=== PATIENT | female | born 1945 | race Caucasian/White ===

== ENCOUNTER 2020-04-18 07:12 | Outpatient (CLI) | payer MEDICARE, SELFPAY ==
[2020-04-18 07:29] LABS: Basophils Absolute Auto 0.05 K/mm3 (0.00-0.10); Basophils Percent Auto 0.8 % (0.0-1.0); Eosinophils Absolute Auto 0.16 K/mm3 (0.02-0.50); Eosinophils Percent Auto 2.4 % (1.0-6.0); Hematocrit 38.6 % (35.0-42.0); Hemoglobin 12.5 g/dL (11.7-13.8); Immature Granulocyte Absolute 0.03 K/mm3 (0.00-0.00); Immature Granulocyte Percent A 0.5 % (0.0-0.0); Lymphocytes Absolute Auto 2.36 K/mm3 (1.10-4.50); Lymphocytes Percent Auto 35.9 % (18.0-42.0); Mean Corpuscular HGB Conc 32.4 g/dL (32.0-36.0); Mean Corpuscular Hemoglobin 31.4 pg (27.0-31.0); Mean Platelet Volume 8.6 fl (9.2-11.8); Monocytes Percent Auto 9.1 % (2.0-11.0); Neutrophils Absolute Auto 3.4 K/mm3 (1.7-7.2); Neutrophils Percent Auto 51.3 % (50.0-70.0); Platelet Count Result 339 K/mm3 (150-420); Red Blood Count 3.98 M/mm3 (4.20-5.40); Red Cell Distribution Width 11.8 % (11.6-14.4); White Blood Count 6.6 K/mm3 (4.8-10.8)
[2020-04-18 08:56] LABS: Alanine Aminotransferase 39 U/L (14-59); Albumin Level 3.7 g/dL (3.4-5.0); Alkaline Phosphatase 136 U/L (46-116); Anion Gap 7 mmol/L (8-16); Aspartate Amino Transferase 14 U/L (15-37); Bilirubin,Total 0.4 mg/dL (0.00-1.00); Blood Urea Nitrogen 21 mg/dL (7-18); Calcium 9.3 mg/dL (8.5-10.1); Carbon Dioxide 30 mmol/L (21-32); Chloride 103 mmol/L (98-108); Cholesterol 258 mg/dL (0-200); Estimated Glomerular Filt Rate > 60; Glucose 98 mg/dL (70-99); HDL Direct 68 mg/dL (40-60); LDL Cholesterol Calculated 167 mg/dL (<130); Osmolality Calculated 293 mOsm/kg (285-295); Potassium 4.2 mmol/L (3.5-5.1); Sodium 140 mmol/L (136-145); Thyroid Stimulating Hormone 1.88 uIU/mL (0.36-3.74); Triglycerides 115 mg/dL (0-150); Vitamin B12 586 pg/mL (193-986)
[2020-04-18 08:57] LABS: Folic Acid > 20.0 ng/mL (8.6->20)
== END 2020-04-18 07:13 | disposition home or self-care (01) ==
LOC: CHSLAB 07:15
PROVIDERS: PCP Family Medicine; Visit Provider Physician Assistant
DX: E03.9 Hypothyroidism, unspecified (principal); E66.9 Obesity, unspecified; E78.5 Hyperlipidemia, unspecified; M85.80 Other specified disorders of bone density and structure, unspecified site
CPT/HCPCS: 36415; 80053; 80061; 82607; 82746; 84443; 85025

== ENCOUNTER 2022-03-06 08:30 | Outpatient (CLI) | payer MEDICARE, SELFPAY ==
--- NOTE | ~2022-03-06 | MM_ITS ---
EXAMINATION: MM screening [facility] BI w jey HISTORY: Screening TECHNIQUE: Craniocaudal and mediolateral oblique 3-D tomosynthesis images were obtained and synthetic 2-D images were generated. CAD analysis was submitted and interpreted. COMPARISON: Comparison to multiple prior studies sequentially, with oldest reviewed study dated 05/25. BREAST PARENCHYMAL COMPOSITION: Breast composed of scattered areas of fibroglandular density FINDINGS: There is no evidence of suspicious mass, calcification, or architectural distortion to sugg est malignancy in either breast. There has been no suspicious interval change. IMPRESSION: 1. No mammographic evidence of malignancy. 2. Recommend routine screening mammography in one year. BI-RADS Category 1: Negative Reviewed, dictated and finalized at location A.
== END 2022-03-06 08:31 | disposition home or self-care (01) ==
PROVIDERS: PCP Physician Assistant; Visit Provider Physician Assistant
DX: Z12.31 Encounter for screening mammogram for malignant neoplasm of breast (principal)
CPT/HCPCS: 77063; 77067

== ENCOUNTER → 2022-12-01 11:45 | Outpatient (CLI) | payer MEDICARE, SELFPAY ==
--- NOTE | ~2022-12-01 | XR_ITS ---
Right foot Technique: AP, oblique, and lateral views were obtained. Clinical History: Pain Findings: No acute fracture or dislocation is seen. There is mild degenerative change at the first me tatarsophalangeal joint and first and second tarsometatarsal joints. Soft tissues are unremarkable. Impression: Mild degenerative changes, as above. Reviewed, dictated and finalized at location . Impression: Mild degenerative changes, as above.
--- NOTE | ~2022-12-01 | XR_ITS ---
Left foot Technique: AP, oblique, and lateral views were obtained. Clinical History: Pain Findings: No acute fracture or dislocation is seen. Problem mild degenerative change at the tarsometa tarsal reticulation. Soft tissues are unremarkable. Impression: Probable mild degenerative changes at the tarsometatarsal articulations. Reviewed, dictated and finalized at [facility]. Impression: Probable mild degenerative changes at the tarsometatarsal articulations.
== END ==
PROVIDERS: PCP Physician Assistant; Visit Provider Physician Assistant
DX: M79.671 Pain in right foot (principal); M79.672 Pain in left foot
CPT/HCPCS: 73630

== ENCOUNTER 2022-12-29 10:15 | Outpatient (RCR) | payer MEDICARE, SELFPAY ==
--- NOTE | 2022-12-01 17:17 | OPREHPOC ---
Outpatient Therapy Plan of Care This is a Multidisciplinary Plan of Care that may contain components documented by all disciplines (PT, OT, and ST.) PT Problem 1 PT Problem #1 Knowledge Deficit PT Goal 1 Goal Pt to be IND with issued HEP Target Visit 8 PT Problem 2 PT Problem #2 Impaired Range of Motion PT Goal 1 Goal Pt to increased passive hip rotation ROM to WNL Target Visit 8 PT Goal 2 Goal Pt to increase axtive ankle dorsiflexion with knees extended to 10 deg tyree. Target Visit 8 PT Problem 3 PT Problem #3 Pain PT Goal 1 Goal Pt to report tyree foot pain no greater than 3/10 in the last week Target Visit 8 PT Goal 2 Goal Pt to report 75% improvement in overall symptoms Target Visit 8 PT Problem 4 PT Problem #4 Impaired Gait PT Goal 1 Goal Pt to demonstrate a symetrical gait pattern Target Visit 8
--- NOTE | 2022-12-01 17:18 | PTOPEVAL1 ---
Assessment and note entered by Orly Peña, PT, DPT Evaluation Information Assessment Status Evaluation Diagnosis tyree foot pain Onset 1 year Subjective Information Pt reports intermittent foot pain for the last year or so. She states she has inflammatory issues and will get lots of pain in various places. She states she is on 800mg Ibuprofen for another issue which is helping with her feet. She has a history of L knee replacement. Pt states she relies on her shoes and cannot tolerate to go barefoot. Reported Pain Level Pain Score 0,0: Self Report Assessment PT Clinical Summary Aviva presents to therapy today for her initial evaluation with a diagnosis of tyree foot pain. She also has a history of a R PAVEL and a L TKA. Today she demonstrates decreased ankle ROM L>R, mildly flat arches, uneven gait regarding striking pattern, and decreased R hip motion. She will benefits from skilled therapy services to improve hip and ankle ROM, improve ankle and hip strength, gait training, functional mobility training in order to return to PLOF. Plan of Care Interventions Check Out for Orthotic/Pr,Electrical Stimulation, Gait Training,Hot Pack/Cold Pack,Manual Therapy, Neuro Re-education,Patient/Caregiver Educati, Therapeutic Activities,Therapeutic Exercise, Ultrasound PT Services Indicated Yes Treatment Frequency and 2x/wk for 8 visits Duration These treatments will address the objective and functional deficits as defined above. The patient will be advanced safely and appropriately in order for the patient to progress towards his/her prior level of function. Additional exercises will be introduced and as well as a comprehensive home exercise program upon discharge, if needed, ?to ensure carryover of functional gains achieved in the clinic. This treatment plan has been reviewed and agreement upon by the patient.
--- NOTE | 2022-12-10 08:15 | PCPTNOTE ---
Patient reports she cannot come in this date.
--- NOTE | 2022-12-16 11:27 | PCPTNOTE ---
Patient called to cancel due to being out of town.
--- NOTE | 2022-12-22 08:22 | PCPTNOTE ---
Patient called & cancelled scheduled appointment this date due to being around a COVID+ person.
--- NOTE | 2022-12-29 11:01 | PTOPDC ---
Assessment and note entered by Orly Peña, PT, DPT Evaluation Information Assessment Status Discharge Diagnosis tyree foot pain Onset 1 year Subjective Information Pt states her feet are a little bit better. She states she gets pain in the morning still and just has to walk it off. She states she has learned a lot of about her feet and their alignment. She states she has learned techniques to decrease her pain and that she has benefitted from therapy. Reported Pain Level Pain Score 0,1: Self Report Assessment PT Clinical Summary Aviva presents to therapy today for her initial evaluation with a diagnosis of tyree foot pain. She also has a history of a R PAVEL and a L TKA. Today she demonstrates improved ankle mobility compared to her first visit. She has improved her gait but still has a decreased heel strike R compared to L. She states she has learned a lot from therapy and would like to continue on her own. She will therefore be discharged at this time. Plan of Care PT Services Indicated No
== END 2023-01-08 08:30 | disposition home or self-care (01) ==
LOC: ANHGOSHPT 10:15
PROVIDERS: PCP Family Medicine; Visit Provider Physician Assistant
DX: M79.671 Pain in right foot (principal); M79.672 Pain in left foot
CPT/HCPCS: 97110; 97112; 97140; 97161; 97530

== ENCOUNTER 2023-03-30 14:10 | Outpatient (CLI) | payer MEDICARE, SELFPAY ==
[2023-03-30 19:12] LABS: Alanine Aminotransferase 33 U/L (6-35); Albumin Level 4.5 g/dL (3.5-5.1); Alkaline Phosphatase 93 U/L (38-126); Anion Gap 8 mmol/L (8-16); Aspartate Amino Transferase 39 U/L (14-36); Bilirubin,Total 0.6 mg/dL (0.2-1.3); Blood Urea Nitrogen 15 mg/dL (7-17); Calcium 9.8 mg/dL (8.4-10.2); Carbon Dioxide 26 mmol/L (22-30); Chloride 101 mmol/L (98-107); Estimated Glomerular Filt Rate > 60; Glucose 91 mg/dL (65-110); Potassium 4.5 mmol/L (3.4-5.0); Sodium 135 mmol/L (137-145)
[2023-03-30 19:57] LABS: Vitamin B12 > 1000.0 pg/mL (239-931); Vitamin D 25 Hydroxy 38.9 ng/mL
[2023-03-30 20:08] LABS: Thyroid Stimulating Hormone Reflex < 0.015 uIU/mL (0.465-4.68)
[2023-03-30 22:19] LABS: Free T4 Free Thyroxine Reflex 2.34 ng/dL (0.78-2.19)
[2023-03-30 23:18] LABS: Hemoglobin A1C 5.4 % (<5.7)
== END 2023-03-30 14:11 | disposition home or self-care (01) ==
LOC: ANHGOSHLAB 14:11
PROVIDERS: PCP Family Medicine; Visit Provider Family Medicine
DX: E03.9 Hypothyroidism, unspecified (principal); E78.5 Hyperlipidemia, unspecified; E53.8 Deficiency of other specified B group vitamins; R73.03 Prediabetes; Z79.899 Other long term (current) drug therapy; E55.9 Vitamin D deficiency, unspecified
CPT/HCPCS: 36415; 80053; 82306; 82607; 83036; 84439; 84443

== ENCOUNTER 2023-07-27 09:43 | Outpatient (CLI) | payer MEDICARE, SELFPAY ==
[2023-07-27 15:14] LABS: Thyroid Stimulating Hormone Reflex 0.052 uIU/mL (0.465-4.68)
[2023-07-27 15:58] LABS: Free T4 Free Thyroxine Reflex 1.43 ng/dL (0.78-2.19)
[2023-07-27 18:52] LABS: Total Triiodothyronine (T3) 1.04 NG/ML (0.97-1.69)
== END 2023-07-27 09:44 | disposition home or self-care (01) ==
LOC: ANHGOSHLAB 09:45
PROVIDERS: PCP Family Medicine; Visit Provider Family Medicine
DX: E03.9 Hypothyroidism, unspecified (principal)
CPT/HCPCS: 36415; 84439; 84443; 84480

== ENCOUNTER 2023-08-17 13:18 | Outpatient (CLI) | payer MEDICARE, SELFPAY ==
--- NOTE | ~2023-08-17 | MM_ITS ---
EXAMINATION: MM screening [facility] BI w jey HISTORY: Screening TECHNIQUE: Craniocaudal and mediolateral oblique 3-D tomosynthesis images were obtained and synthetic 2-D images were generated. CAD analysis was submitted and interpreted. COMPARISON: Comparison to multiple prior studies sequentially, with oldest reviewed study dated 03/04. BREAST PARENCHYMAL COMPOSITION: There are scattered areas of fibroglandular density. FINDINGS: There is no evidence of suspicious mass, calcification, or architectural distortion to sugg est malignancy in either breast. There has been no suspicious interval change. IMPRESSION: 1. No mammographic evidence of malignancy. 2. Recommend routine screening mammography in one year. BI-RADS Category 1: Negative Reviewed, dictated and finalized at location B.
--- NOTE | ~2023-08-17 | DEXA_ITS ---
? Bone Density Report? Name:? ASH MARAVILLA Patient ID:??? [id number] Age:? 78 Sex:? Female Ethnicity:? White Date of : 1945 Indication: postmenopausal; screening for osteoporosis; height loss; Referring Provider: JO LOMELI Study: Bone densitometry was performed. Exam Date: August 17, 2023 Accession number: [id number] Bone Density: Region? BMD??? T-score? Z-score?? Classification AP Spine(L2, L3, L4)? 1.022?? -0.5?2.1? Normal Femoral Neck (Left)? 0.822?? -0.2? 1.9? Normal Total Hip (Left)? 0.885?? -0.5? 1.4? Normal World Health Organization criteria for BMD impression classify patients as: Normal (T-score at or above -1.0), Osteopenia (T-score between -1.0 and -2.5), or Osteoporosis (T-score at or below -2.5). 10-year Fracture Risk: FRAX not reported because: ? All T-scores for Spine Total, Hip Total, Femoral Neck at or above -1.0 Clinical Information Provided by Patient: Has used the following medications: Vitamin D Patient maximum height was 66 Menopause Age: 52 Drinks caffeinated beverages Onset of menses at age 15 Number of children 3 Impression: The patient has normal bone mass. Discussion: LOW RISK OF FRACTURE; BONE DENSITY IS WELL ABOVE THE MINIMUM DESIRABLE LEVEL AND ABOVE AVERAGE FOR AGE AND SEX AT ALL SKELETAL SITES TESTED. This person's bone density is above expected limits for age and sex. This is rarely clinically significant, but should be pursued if there are significant musculoskeletal complaints. The patient should follow a healthful lifestyle (good nutrition with adequate calcium and vitamin D, and appropriate weight- bearing exercise). Follow-Up: Consider repeating this study in 5 years or sooner if there is some new clinical indication. Reported by: Dr. Eligio Coronado on 08/18/2023 9:38:00 AM. ELISHA
== END 2023-08-17 13:19 | disposition home or self-care (01) ==
LOC: CHSIMG 13:19
PROVIDERS: PCP Family Medicine; Visit Provider Family Medicine
DX: Z12.31 Encounter for screening mammogram for malignant neoplasm of breast (principal); Z78.0 Asymptomatic menopausal state
CPT/HCPCS: 77063; 77067; 77080

== ENCOUNTER 2023-09-16 13:35 | Outpatient (CLI) | payer MEDICARE, SELFPAY ==
--- NOTE | 2023-09-16 14:10 | NEURO_ITS ---
Impression: # Complains of numbness of both hands. # Bilateral Carpal Tunnel Syndrome, left more than right. # Right ulnar neuropathy across the elbow. # Needle/EMG exam mildly (abnormal) neurogenic. Nerve Conduction Studies Anti Sensory Summary Table Stim Site NR Peak (ms) P-T Amp (?V) Site1 Site2 Delta-P (ms) Dist (cm) Matt (m/s) Left Median Anti Sensory (2-3nd Digit) Wrist 5.8 45.9 Wrist 2-3nd Digit 5.8 14.0 24 Wrist 5.7 9.8 Wrist 2-3nd Digit 5.8 14.0 24 Right Median Anti Sensory (2-3nd Digit) Wrist 5.2 15.7 Wrist 2-3nd Digit 5.2 14.0 27 Wrist 5.4 17.1 Wrist 2-3nd Digit 5.2 14.0 27 Left Radial Anti Sensory (Base 1st Digit) Wrist 2.9 25.3 Wrist Base 1st Digit 2.9 0.0 Right Radial Anti Sensory (Base 1st Digit) Wrist 2.6 10.3 Wrist Base 1st Digit 2.6 0.0 Left Ulnar Anti Sensory (5th Digit) Wrist 2.8 67.5 Wrist 5th Digit 2.8 14.0 50 Right Ulnar Anti Sensory (5th Digit) Wrist 2.7 33.7 Wrist 5th Digit 2.7 14.0 52 Motor Summary Table Stim Site NR Onset (ms) O-P Amp (mV) Site1 Site2 Delta-0 (ms) Dist (cm) Matt (m/s) Left Median Motor (Abd Poll Brev) Wrist 5.1 2.2 Elbow Wrist 5.2 30.0 58 Elbow 10.3 2.4 Right Median Motor (Abd Poll Brev) Wrist 4.1 3.4 Elbow Wrist 6.9 30.0 43 Elbow 11.0 2.2 Left Ulnar Motor (Abd Dig Minimi) Wrist 2.7 7.5 A Elbow Wrist 5.4 31.0 57 A Elbow 8.1 6.0 Right Ulnar Motor (Abd Dig Minimi) Wrist 2.1 6.6 A Elbow Wrist 7.0 32.0 46 A Elbow 9.1 6.5 B Elbow Wrist 4.4 22.0 50 B Elbow 6.5 6.6 F Wave Studies NR F-Lat (ms) L-R F-Lat (ms) Left Median (Mrkrs) (Abd Poll Brev) 30.58 0.99 Right Median (Mrkrs) (Abd Poll Brev) 29.59 0.99 Left Ulnar (Mrkrs) (Abd Dig Min) 28.38 0.16 Right Ulnar (Mrkrs) (Abd Dig Min) 28.54 0.16 EMG Side Muscle Nerve Root Ins Act Fibs Amp Dur Recrt Comment Right 1stDorInt Ulnar C8-T1 Nml Nml Incr >12ms +2 Right Ext Indicis Radial (Post Int) C7-8 Nml Nml Nml Nml Nml Right Ext Digitorum Radial (Post Int) C7-8 Nml Nml Nml Nml Nml Right BrachioRad Radial C5-6 Nml Nml Nml Nml Nml Right PronatorTeres Median C6-7 Nml Nml Nml Nml Nml Right Abd Poll Brev Median C8-T1 Nml Nml Incr >12ms +1 Right ABD Dig Min Ulnar C8-T1 Nml Nml Incr >12ms +1 Left 1stDorInt Ulnar C8-T1 Nml Nml Nml Nml Nml Left Ext Indicis Radial (Post Int) C7-8 Nml Nml Nml Nml Nml Left Ext Digitorum Radial (Post Int) C7-8 Nml Nml Nml Nml Nml Left BrachioRad Radial C5-6 Nml Nml Nml Nml Nml Left PronatorTeres Median C6-7 Nml Nml Nml Nml Nml Left Abd Poll Brev Median C8-T1 Nml Nml Incr >12ms +1 Left ABD Dig Min Ulnar C8-T1 Nml Nml Nml Nml Nml MTDD
== END 2023-09-16 13:36 | disposition home or self-care (01) ==
LOC: ANHNEURO 13:35
PROVIDERS: PCP Family Medicine; Visit Provider Family Medicine
DX: R20.0 Anesthesia of skin (principal); R20.2 Paresthesia of skin; G56.03 Carpal tunnel syndrome, bilateral upper limbs; G56.21 Lesion of ulnar nerve, right upper limb
CPT/HCPCS: 95886; 95911

== ENCOUNTER 2024-07-13 08:03 | Outpatient (CLI) | payer MEDICARE, SELFPAY ==
--- OUTSIDE RECORDS SUMMARY | 2024-07-13 08:10 | XMS_ITS | Clinical Summary ---
Author Organization [facility] Address [address] [place] [address] Phone Care Team Providers Care Steel Hanger Name Role Phone Pato Staples MD Primary Care Provider [phone] Allergies No known active allergies Medications aspirin (JERICHO CHEWABLE) 81 mg Tablet, Chewable Take 81 mg by mouth daily. 12/24/2019 Active valACYclovir (VALTREX) 1 gram tablet 12/12/2020 Active atorvastatin (LIPITOR) 20 mg tablet 12/14/2020 Active famotidine (PEPCID) 40 mg tablet 12/14/2020 Active ALPRAZolam (XANAX) 0.5 mg tablet Take 0.5 mg by mouth. 09/27/2019 Active levothyroxine 137 mcg tablet 11/25/2020 Acti ve diclofenac sodium (VOLTAREN) 75 mg Tablet, Delayed Release (E.C.) TAKE 1 TABLET BY MOUTH TWICE A DAY NEEDED FOR PAIN 12/24/2022 Active Phentermine (Adipex-P) 37.5 mg CapsuleIndicati ons:History of obesity,Overwei ght (BMI 25.0-29.9) Take 1 Tablet by mouth daily. 30 Capsule 5 02/13/2023 Active metFORMIN (GLUCOPHAGE XR) 500 mg Extended Release 24 hour tablet Take 2 Tablets (1,000 mg) by mouth 2 times daily with meals. 360 Tablet 3 03/19/2023 Active Active Problems Problem Noted Date Diagnosed Date Pre-diabetes 03/11/2019 Overweight (BMI 25.0-29.9) 10/23/2017 History of obesity 10/23/2017 Elevated C-reactive protein (CRP) 12/23/2016 Impaired fasting glucose 12/23/2016 Hyperlipidemia 12/23/2016 Family history of breast cancer in mother 2016 Family hx of ovarian malignancy 12/23/2016 Resolved Problems Problem Noted Date Diagnosed Date Resolved Date Obesity (BMI 30.0-34.9) 12/23/201610/03 Encounters Date Type Department Care Team Description 05/31/2024 External Device Data ST[facility] ABSTRACTION Provider, Abstract from Last 3 Months Immunizations Immunization Administration Dates Next Due Influenza Vaccine High Dose 65+ Yrs IM 7 Family History Medical History Relation Name Comments Cancer Brother lung Healthy Daughter Heart Disease Father Breast Cancer Mother Cancer Sister 1 liver Ovarian Cancer Sister 2 Healthy Son 1 Healthy Son 2 Relation Name Status Comments Brother Daughter Father Mother Sister 1 Sister 2 Son 1 Son 2 Social History Tobacco Use Types Packs/Day Years Used Date Smoking Tobacco: Never Smokeless Tobacco: Never Alcohol Use Standard Drinks/Week Comments Yes 0 (1 standard drink = 0.6 oz pur e alcohol) daily Comments No Sex and Gender Information Value Date Recorded Sex Assigned at Not on file Legal Sex Female 1:11 PM CDT Gender Identity Not on file Sexual Orientation Not on file Last Filed Vital Signs Vital Sign Reading Time Taken Comments Blood Pressure 124/80 02/13/2023 12:20 PM CDT Pulse 71 02/13/2023 12:20 PM CDT Temperature 36.8 C (98.2 F) 12/23/2016 10:13 AM CDT Respiratory Rate 16 12/23/2016 10:13 AM CDT Oxygen Saturation 97% 02/13/2023 12:20 PM CDT Inhaled Oxygen Concentration - - Weight 78.9 kg (174 lb) 02/13/2023 12:20 PM CDT Height 165.1 cm (5' 5 ) 02/13/2023 12:20 PM CDT Body Mass Index 28.96 02/13/2023 12:20 PM CDT Plan of Treatment Health Maintenance Due Date Last Done Comments DTAP/TDAP/TD VACCINES (1 - Tdap) 1966 PNEUMOCOCCAL VACCINE 50+ YEA RS (1 of 1 - PCV) 1997 ZOSTER VACCINE (1 of 2) 1997 OSTEOPOROSIS SCREENING 2012 RSV VACCINE (60+ or ) (1 - 1-dose 75+ series) 2022 INFLUENZA VACCINE (#1) 2023 06/18/2021, 2016 Insurance [employer] PPO MCR Care Teams Steel Hanger Relationship Specialty Start Date End Date Pato Staples MD [address] [place] [address] PCP - General Family Practice 10/23/17
--- OUTSIDE RECORDS SUMMARY | 2024-07-13 08:10 | XMS_ITS | Clinical Summary ---
Author Organization [facility] Address Formerly [facility] [place] [address] Care Team Providers Care Metallography Teacher Name Role Phone Pato Staples MD Primary Care Provider [phone] Allergies No known active allergies Medications levothyroxine 137 MCG tablet Take 137 mcg by mouth every morning. Active metFORMIN ER, MOD, 500 MG TABLET SR 24 HR 24 hr tablet Take 1,000 mg by mouth 2 (two) times daily. 11/18/2019 Active ALPRAZolam 0.5 MG tablet Take 0.5 mg by mouth as needed. 09/27/2019 Active aspirin 81 MG chewable tablet Chew 1 tablet (81 mg total) by mouth daily. 30 tablet 12/24/2019 Active nitroglycerin 0.[address] 1 tablet (0.4 mg total) under the tongue every 5 (five) minutes as needed for Chest Pain. 90 tablet 12/23/2019 Active Active Problems Problem Noted Date Diagnosed Date Substernal chest pain relieved by rest 0 Anxiety 12/22/2019 Pre-diabetes 03/11/2019 History of obesity 10/23/2017 Overweight with body mass index (BMI) 25.0-29.9 10/23/2017 Hyperlipidemia 12/23/2016 Family History Medical History Relation Comments Heart Disease Father Cancer Mother breast cancer Cancer Sister 1 unknown Cancer Sister 2 unknown Relation Status Comments Father Mother Sister 1 Sister 2 Social History Tobacco Use Types Packs/Day Years Used Date Smoking Tobacco: Never Smokeless Tobacco: Never Alcohol Use Standard Drinks/Week Comments Yes 3.3 (1 standard drink = 0.6 oz p ure alcohol) daily Comments Unknown Sex and Gender Information Value Date Recorded Sex Assigned at Not on file Legal Sex Female 12:31 PM CDT Gender Identity Not on file Sexual Orientation Not on file Last Filed Vital Signs Vital Sign Reading Time Taken Comments Blood Pressure 137/76 12/23/2019 8:29 AM CDT Pulse 72 12/23/2019 8:29 AM CDT Temperature 36.6 C (97.9 F) 12/23/2019 8:29 AM CDT Respiratory Rate 18 12/23/2019 8:29 AM CDT Oxygen Saturation 98% 12/23/2019 8:29 AM CDT Inhaled Oxygen Concentration - - Weight 77.6 kg (171 lb) 12/23/2019 4:51 AM CDT Height 165.1 cm (5' 5 ) 12/22/2019 3:00 PM CDT Body Mass Index 28.46 12/22/2019 3:00 PM CDT Plan of Treatment Health Maintenance Due Date Last Done Comments Hepatitis C 1965 DTaP, Tdap and Td Vaccines ( 1 - Tdap) 1966 Zoster Vaccines (1 of 2) 1997 Annual Medicare Wellness Visit 2012 Dexa Scan (General) 2012 Pneumococcal Vaccine: 65+ Ye ars (1 of 1 - PCV) 2012 RSV Immunization or 60+ Years (1 - 1-dose 75+ series) 2022 COVID-19 Vaccine ( - 2023-2 5 season) 2024 Influenza Adult (#1) 2024 Meningococcal B Vaccine Aged Out No l onger eligible based on patient's age to complete this topic Meningococcal Vaccine Aged Out No calos rosetta eligible based on patient's age to complete this topic RSV Immunizations Under 20 Months Aged Out No longer eligible based on patient's age to complete this topic [place] [address] [place] [address] GROUP MEDICARE Advance Directives * Full Code (Latest Code Status on File) Date Activated Date Inactivated Comments 12/22/2019 2:59 PM 12/23/2019 3:03 PM Care Teams Metallography Teacher Relationship Specialty Start Date End Date Pato Staples MD [address] [place] [address] PCP - General FAMILY PRACTICE 12/22/19
--- OUTSIDE RECORDS SUMMARY | 2024-07-13 08:10 | XMS_ITS | Clinical Summary ---
Author Organization [facility] Address [address] [place] [address] Care Team Providers Care Weed Burner Name Role Phone Unavailable Primary Care Provider Unavailabl e Social History Tobacco Use Types Packs/Day Years Used Date Smoking Tobacco: Never Assessed Comments Unknown Sex and Gender Information Value Date Recorded Sex Assigned at Not on file Legal Sex Female 9:54 AM TEMPERING KILN TENDER Gender Identity Not on file Sexual Orientation Not on file Plan of Treatment Health Maintenance Due Date Last Done Comments DEXA Bone Density 1945 Hepatitis C Virus (HCV) Screening 1945 TdaP Immunization 1945 Zoster Immunization (1 of 2) 1997 Pneumococcal Immunization (5 0+ years) (2 of 2 - PCV) 10/26/2019 10/25/2018 Respiratory Syncytial Virus (RSV) Immunization (Adult) (1 - 1-dose 75+ series) 2022 Influenza Immunization (#1) 2024 03/27/2020 SARS-COV-2 Immunization ( - season) 2024 Pneumococcal Immunization Combined Discontinued 10/25/2018 Hepatitis B Immunization Aged Out No longer eligible based on patient's age to complete this topic Meningococcal Immunization (ACWY) Aged Out No longer eligible based on patient's age to complete this topic Rotavirus Immunization Aged Out No lo nger eligible based on patient's age to complete this topic
--- OUTSIDE RECORDS SUMMARY | 2024-07-13 08:10 | XMS_ITS | Clinical Summary ---
Author Organization [facility] [address] [facility] Address [address] [place] [address] Care Team Providers Care Printed Circuit Boards Inspector Name Role Phone Divine Castillo MD Primary Care Provider Allergies No known active allergies Medications ALPRAZolam (XANAX) 0.5 mg tablet Take 1 tablet (0.5 mg total) by mouth 09/27/2019 Active atorvastatin (LIPITOR) 20 mg tablet 12/29/2021 Active famotidine (PEPCID) 40 mg tablet Take 1 tablet (40 mg total) by mouth daily 03/19/2022 Active metFORMIN (GLUMETZA) 500 mg 24 hr tablet Take 2 tablets (1,000 mg total) by mouth 2 (two) times a day 11/18/[address] (VOLTAREN) 75 mg EC tablet 75 MG ORALLY TWICE A DAY NEEDED FOR PAIN Active levothyroxine (SYNTHROID) 112 mcg tablet Take 1 tablet (112 mcg total) by mouth daily 04/11/2024 Active losartan (COZAAR) 100 mg tablet Take 1 tablet (100 mg total) by mouth daily 01/15/2024 Active Active Problems Problem Noted Date Diagnosed Date Primary osteoarthritis of right knee 05/31/2024 Encounters Date Type Department Care Team Description 07/11/2024 8:15 AM CDT Ancillary Procedure [facility] [address] [facility] [address] [place] [address] Arrived 07/11/2024 8:15 AM CDT Office Visit [facility] [address] [phone] Martínez Guadalupe MD Primary osteoarthritis of right knee (Primary Dx); Right knee pain, unspecified chronicity 06/02/2024 1:15 PM PRESS OPERATOR AUTOMATIC Clinical Support [address] [address] Martínez Guadlaupe MD Primary osteoarthritis of right knee (Primary Dx) 05/30/[address] [address] Martínez Guadalupe MD 04/22/2024 10:30 AM PRESS OPERATOR AUTOMATIC Clinical Support [address] [address] Radha Cruz NP Right knee pain, unspecified chronicity (Primary Dx); Primary osteoarthritis of right knee; Risk for falls; Altered gait from Last 3 Months Immunizations Immunization Administration Dates Next Due Influenza, Trivalent, High D ose, Split, Preservative Free, Intramuscular 02/04/2017 Social History Tobacco Use Types Packs/Day Years Used Date Smoking Tobacco: Never Smokeless Tobacco: Never Tobacco Cessation:Counseling Given: Not Answered Comments Unknown Sex and Gender Information Value Date Recorded Sex Assigned at Not on file Legal Sex Female 9:12 PM PRESS OPERATOR AUTOMATIC Gender Identity Not on file Sexual Orientation Not on file Obstetrics History Last Filed Vital Signs Vital Sign Reading Time Taken Comments Blood Pressure 121/69 02/04/2017 7:59 AM CDT Pulse 80 02/04/2017 7:59 AM CDT Temperature - - Respiratory Rate - - Oxygen Saturation - - Inhaled Oxygen Concentration - - Weight 77.1 kg (170 lb) 07/11/2024 8:07 AM CDT Height 165.1 cm (5' 5 ) 07/11/2024 8:07 AM CDT Body Mass Index 28.29 07/11/2024 8:07 AM CDT Plan of Treatment Health Maintenance Due Date Last Done Comments Depression Screening 1945 Fall Risk Assessment 1945 Hepatitis C Screening 1945 Osteoporosis Screening-Bone Density Scan 1945 DTaP/Tdap/Td Vaccine (1 - Tdap) 1958 Hepatitis B Screening 1965 Zoster Vaccine (1 of 2) 1997 Well Visit 65+ 2012 Pneumococcal vaccine 65+ (2 of 2 - PCV) 10/26/2019 10/25/2018 Covid-19 Vaccine (2 - season) 2024 Influenza Vaccine (#1) 2024 1, 03/27/2020, 02/04/2017 Procedures Procedure Name Priority Date/Time Associated Diagnosis Comments XR KNEE RIGHT 4 OR MORE VIEWS Schedule Routine, Read Routine (OP Routine) 07/11/2024 8:19 AM CDT Right knee pain, unspecified chronicity [place] ARTHROCENTESIS ASPIR&/INJ MAJOR JT/BURSA W/O US Routine 06/02/2024 1:15 PM PRESS OPERATOR AUTOMATIC Primary osteoarthritis of right knee [place] ARTHROCENTESIS ASPIR&/INJ MAJOR JT/BURSA W/O US Routine 04/22/2024 10:30 AM PRESS OPERATOR AUTOMATIC Right knee pain, unspecified chronicity Primary osteoarthritis of right knee Risk for falls Altered gait from Last 3 Months Results * XR Knee Right 4+ View (07/11/2024 8:19 AM CDT) Anatomical Region Laterality Modality Lower Extremities, Knee Right Computed Radiography 07/11/2024 8:22 AM CDT Impressions 07/11/2024 8:22 AM CDT FINDINGS/IMPRESSION: Osseous demineralization. Tricompartmental degenerative changes in the right knee seen with medial compartment joint space narrowing with bone on bone apposition and remodeling, osteophytes, and advanced patellofemoral joint arthrosis. Small to moderate right knee effusion. Small superior patellar enthesophyte. No acute fracture or dislocation. Alignment is otherwise intact. Mild prepatellar and infrapatellar soft tissue swelling. Mild vascular calcifications. Postoperative changes of left knee arthroplasty. The hardware is intact and in expected alignment. Electronically signed by: Quinton Valera M.D. Narrative 07/11/2024 8:22 AM CDT EXAM: XR KNEE RIGHT 4 OR MORE VIEWS INDICATION: Pain COMPARISON: Radiograph 08/10/2023 Procedure Note Quinton Valera MD - 07/11/2024 EXAM: XR KNEE RIGHT 4 OR MORE VIEWS INDICATION: Pain COMPARISON: Radiograph 08/10/2023 IMPRESSION: FINDINGS/IMPRESSION: Osseous demineralization. Tricompartmental degenerative changes in the right knee seen with medial compartment joint space narrowing with bone on bone apposition and remodeling, osteophytes, and advanced patellofemoral joint arthrosis. Small to moderate right knee effusion. Small superior patellar enthesophyte. No acute fracture or dislocation. Alignment is otherwise intact. Mild prepatellar and infrapatellar soft tissue swelling. Mild vascular calcifications. Postoperative changes of left knee arthroplasty. The hardware is intact and in expected alignment. Electronically signed by: Quinton Valera M.D. Martínez Guadalupe MD IMG XR PROCEDURES Final Resu lt * [place] ARTHROCENTESIS ASPIR&/INJ MAJOR JT/BURSA W/O US (06/02/2024 1:15 PM PRESS OPERATOR AUTOMATIC) Narrative Martínez Guadalupe MD - 06/02/2024 1:15 PM PRESS OPERATOR AUTOMATIC Martínez Guadalupe MD 06/02/2024 1:18 PM Large Joint (Hip, Knee, Shoulder) Injection: R knee Performed by: Martínez Guadalupe MD Authorized by: Martínez Guadalupe MD Large Joint Injection/Aspiration: Consent Given by: Patient Timeout: prior to procedure the correct patient, procedure, and site was verified Verbal consent obtained: Yes Supporting Documentation: Indications: Pain Procedure Details: Location: Knee Site: R knee Prep: patient was prepped using a clean technique Needle Size: 21 G Approach: Anteromedial Ultrasound guided: No Medications: 40 mg methylPREDNISolone acetate 40 mg/mL Patient tolerance: Patient tolerated the procedure well with no immediate complications us Martínez Guadalupe MD IN CLINIC/BEDSIDE ORDERABLES Final Result * [place] ARTHROCENTESIS ASPIR&/INJ MAJOR JT/BURSA W/O US (04/22/2024 10:30 AM PRESS OPERATOR AUTOMATIC) Radha Carnes NP - 04/22/2024 10:30 AM PRESS OPERATOR AUTOMATIC Radha Cruz NP 04/22/2024 1:03 PM Large Joint (Hip, Knee, Shoulder) Injection: R knee Performed by: Radha Cruz NP Authorized by: Radha Cruz NP Large Joint Injection/Aspiration: Consent Given by: Patient Timeout: prior to procedure the correct patient, procedure, and site was verified Verbal consent obtained: Yes Supporting Documentation: Indications: Joint swelling and pain Procedure Details: Location: Knee Site: R knee Prep: patient was prepped using a clean technique Needle Size: 21 G Approach: Anteromedial Ultrasound guided: No Fluroscopic guidance: No Medications: 60 mg hyaluronate sodium, stabilized 60 mg/3 mL; 1 mL lidocaine 10 mg/mL (1 %) Patient tolerance: Patient tolerated the procedure well with no immediate complications Radha Cruz NP IN CLINIC/BEDSIDE ORDER CHUCKY Final Result from Last 3 Months Insurance [employer] MED[employer] Care Teams Printed Circuit Boards Inspector Relationship Specialty Start Date End Date Divine Castillo MD [address] [facility] [address] [place] [address] PCP - General Family Practice 04/22/24
--- OUTSIDE RECORDS SUMMARY | 2024-07-13 08:10 | XMS_ITS | Referral Summary ---
Author Organization [address] Address [address] [place] [phone] Care Team Providers Care Boxing Promoter Name Role Phone Divine Castillo MD Primary Care Provider Encounters Date Type Department Care Team Description 07/11/2024 8:15 AM CDT Ancillary Procedure [facility] [address] [phone] Arrived 07/11/2024 8:15 AM CDT Office Visit [address] [phone] Martínez Guadalupe MD Primary osteoarthritis of right knee (Primary Dx); Right knee pain, unspecified chronicity 06/02/2024 1:15 PM STEAM SETTER Clinical Support [address] [phone] Martínez Guadalupe MD Primary osteoarthritis of right knee (Primary Dx) 05/30/[address] [address] Martínez Guadalupe MD 04/22/2024 10:30 AM STEAM SETTER Clinical Support [address] [phone] Radha Cruz NP Right knee pain, unspecified chronicity (Primary Dx); Primary osteoarthritis of right knee; Risk for falls; Altered gait from Last 3 Months Allergies No known active allergies Medications ALPRAZolam [...] Date Primary osteoarthritis of right knee 05/31/2024 Immunizations Immunization Administration Dates Next Due Influenza, Trivalent, High D ose, Split, Preservative Free, Intramuscular 02/04/2017 Social History Tobacco Use Types Packs/Day Years Used Date Smoking Tobacco: Never Smokeless Tobacco: Never Tobacco Cessation:Counseling Given: Not Answered Comments Unknown Sex and Gender Information Value Date Recorded Sex Assigned at Not on file Legal Sex Female 9:12 PM STEAM SETTER Gender Identity Not on file Sexual Orientation [...] 07/11/2024 8:07 AM CDT Plan of Treatment Not on file Procedures Procedure Name Priority Date/Time Associated Diagnosis Comments XR KNEE RIGHT 4 OR MORE VIEWS Schedule Routine, Read Routine (OP Routine) 07/11/2024 8:19 AM CDT Right knee pain, unspecified chronicity [place] ARTHROCENTESIS ASPIR&/INJ MAJOR JT/BURSA W/O US Routine 06/02/2024 1:15 PM STEAM SETTER Primary osteoarthritis of right knee [place] ARTHROCENTESIS ASPIR&/INJ MAJOR JT/BURSA W/O US Routine 04/22/2024 10:30 AM STEAM SETTER Right knee pain, unspecified chronicity Primary osteoarthritis [...] IMG XR PROCEDURES Final Resu lt * [place] ARTHROCENTESIS ASPIR&/INJ MAJOR JT/BURSA W/O US (06/02/2024 1:15 PM STEAM SETTER) Martínez Loredo MD - 06/02/2024 1:15 PM STEAM SETTER Martínez Guadalupe MD 06/02/2024 1:18 PM Large [...] the procedure well with no immediate complications Martínez Guadalupe MD IN CLINIC/BEDSIDE ORDERABLES Final Result * [place] ARTHROCENTESIS ASPIR&/INJ MAJOR JT/BURSA W/O US (04/22/2024 10:30 AM STEAM SETTER) Narrative Radha Cruz NP - 04/22/2024 10:30 AM STEAM SETTER Radha Cruz NP 04/22/2024 1:03 PM Large [...] Final Result from Last 3 Months Insurance [facility] MEDICARE [employer] MEDICARE Care Teams Boxing Promoter Relationship Specialty Start Date End Date Divine Castillo MD [address] [facility] [address] [place], [place] [id number] PCP - General Family Practice 04/22/24
[2024-07-13 13:32] LABS: Hemoglobin A1C 5.7 % (<5.7)
[2024-07-13 14:16] LABS: Vitamin D 25 Hydroxy 43.5 ng/mL
[2024-07-13 14:45] LABS: Creatinine Urine 71.2 mg/dL
[2024-07-13 14:48] LABS: MALB Creatinine Ratio 33.8 mg/g (0-30); Microalbumin Urine Random 24.1 mg/L (0-16.7)
[2024-07-13 15:07] LABS: Free T4 Free Thyroxine Reflex 1.35 ng/dL (0.78-2.19)
[2024-07-13 15:52] LABS: Alanine Aminotransferase 106 U/L (6-35); Albumin Level 4.1 g/dL (3.5-5.1); Alkaline Phosphatase 114 U/L (38-126); Anion Gap 7 mmol/L (4-12); Aspartate Amino Transferase 63 U/L (14-36); Bilirubin,Total 0.4 mg/dL (0.2-1.3); Blood Urea Nitrogen 29 mg/dL (7-17); Calcium 9.4 mg/dL (8.4-10.2); Carbon Dioxide 29 mmol/L (22-30); Chloride 103 mmol/L (98-107); Estimated Glomerular Filt Rate 54; Glucose 91 mg/dL (65-110); Potassium 4.4 mmol/L (3.4-5.0); Sodium 139 mmol/L (137-145)
== END 2024-07-13 08:04 | disposition home or self-care (01) ==
PROVIDERS: PCP Family Medicine; Visit Provider Family Medicine
DX: E03.9 Hypothyroidism, unspecified (principal); E55.9 Vitamin D deficiency, unspecified; E53.8 Deficiency of other specified B group vitamins; E11.9 Type 2 diabetes mellitus without complications; I10 Essential (primary) hypertension; E78.5 Hyperlipidemia, unspecified
CPT/HCPCS: 36415; 80053; 82043; 82306; 82607; 83036; 84439; 84443; 84480

== ENCOUNTER 2024-08-29 12:23 | Outpatient (CLI) | payer MEDICARE, SELFPAY ==
--- NOTE | 2024-08-29 13:06 | ECG_ITS ---
Test Date: 2024-08-29 13:22:14 Measurements Intervals Orgas Rate: 74 P: 55 TX: 162 QRS: 23 QRSD: 92 T: 54 QT: 368 QTc: 411 Interpretive Statements SINUS RHYTHM WITH SINUS ARRHYTHMIA BORDERLINE ST ABNORMALITY- ANTEROLAT/INF LEADS BASELINE ARTIFACT- V6 BORDERLINE ECG No previous ECG available for comparison Electronically Signed On 08-29-2024 13:48:50 CDT by William Bonilla D.O.
[2024-08-29 13:12] LABS: Basophils Absolute Auto 0.1 K/mm3 (0.0-0.1); Basophils Percent Auto 0.9 % (0.2-1.2); Eosinophils Absolute Auto 0.3 K/mm3 (0-0.3); Eosinophils Percent Auto 3.6 % (0-4.4); Hematocrit 33.4 % (37.0-47.0); Hemoglobin 10.5 g/dL (12.0-15.0); Immature Granulocyte Absolute 0.03 K/mm3 (0.00-0.031); Immature Granulocyte Percent A 0.4 % (0-0.5); Lymphocytes Percent Auto 36.9 % (18.3-44.2); Mean Corpuscular HGB Conc 31.4 g/dl (32-36); Mean Corpuscular Hemoglobin 32.1 pg (26-34); Mean Corpuscular Volume 102.1 fl (80-100); Mean Platelet Volume 9.3 fl (7.4-10.4); Monocytes Absolute Auto 0.8 K/mm3 (0.1-0.6); Monocytes Percent Auto 11.6 % (2.6-8.5); Neutrophils Absolute Auto 3.3 K/mm3 (1.3-6.7); Neutrophils Percent Auto 46.6 % (45.5-73.1); Platelet Count Result 304 k/mm3 (150-375); Red Blood Count 3.27 M/mm3 (4.2-5.4); Red Cell Distribution Width 12.5 % (11.5-14.5)
[2024-08-29 13:30] LABS: Alanine Aminotransferase 37 U/L (6-35); Alkaline Phosphatase 119 U/L (38-126); Anion Gap 9 mmol/L (4-12); Aspartate Amino Transferase 25 U/L (14-36); Bilirubin,Total 0.1 mg/dL (0.2-1.3); Blood Urea Nitrogen 21 mg/dL (7-17); Calcium 9.2 mg/dL (8.4-10.2); Carbon Dioxide 28 mmol/L (22-30); Chloride 103 mmol/L (98-107); Estimated Glomerular Filt Rate > 60; Glucose 80 mg/dL (65-110); Potassium 4.4 mmol/L (3.4-5.0); Sodium 140 mmol/L (137-145)
--- OUTSIDE RECORDS SUMMARY | 2024-08-29 14:02 | XMS_ITS | Clinical Summary ---
Author Organization [facility] Address [address] [place] [address] Phone Care Team Providers Care Manager Behavior Name Role Phone Pato Staples MD Primary Care Provider [phone] Allergies No known active allergies Medications aspirin [...] 2016 Insurance [employer] PPO MCR Care Teams Manager Behavior Relationship Specialty Start Date End Date Pato Staples MD [address] [place] [address] PCP - General Family Practice 10/23/17
--- OUTSIDE RECORDS SUMMARY | 2024-08-29 14:02 | XMS_ITS | Clinical Summary ---
Author Organization [address] Address [address] [place] [address] Care Team Providers Care Radiation Control Technician Name Role Phone Divine Castillo MD Primary Care Provider Allergies No known active allergies Medications ALPRAZolam (XANAX) 0.5 mg tablet Take 1 tablet (0.5 mg total) by mouth 0 Active atorvastatin (LIPITOR) 20 mg tablet 2 Active famotidine (PEPCID) 40 mg tablet Take 1 tablet (40 mg total) by mouth daily 2 Active metFORMIN (GLUMETZA) 500 mg 24 hr tablet Take 2 tablets (1,000 mg total) by mouth 2 (two) times a day 0 Active levothyroxine (SYNTHROID) 112 mcg tablet Take 1 tablet (112 mcg total) by mouth daily 4 Active losartan (COZAAR) 100 mg tablet Take 1 tablet (100 mg total) by mouth daily [address] (VOLTAREN) 75 mg EC tablet TAKE 1 TABLET BY MOUTH TWICE A DAY 60 tablet [address] (VOLTAREN) 75 mg EC tablet Take 1 tablet (75 mg total) by mouth 2 (two) times a day 60 tablet 5 08/11/19 25 Discontinued Active Problems Problem Noted Date Diagnosed Date Primary osteoarthritis of right knee 05/31/2024 Encounters Date Type Department Care Team Description 07/11/2024 8:15 AM CDT Ancillary Procedure [facility] [address] [place] [address] [address] [place] [address] 07/11/2024 8:15 AM CDT Office Visit [facility] [address] [place] [phone] Martínez Guadalupe MD Primary osteoarthritis of right knee (Primary Dx); Right knee pain, unspecified chronicity 06/02/2024 1:15 PM CARD DOFFER Clinical Support [facility] [address] [place] [phone] Martínez Guadalupe MD Primary osteoarthritis of right knee (Primary Dx) from Last 3 Months Immunizations Immunization Administration Dates Next Due Influenza, Trivalent, High D ose, Split, Preservative Free, Intramuscular 02/04/2017 Social History Tobacco Use Types Packs/Day Years Used Date Smoking Tobacco: Never Smokeless Tobacco: Never Tobacco Cessation:Counseling Given: Not Answered Comments Unknown Sex and Gender Information Value Date Recorded Sex Assigned at Not on file Legal Sex Female 9:12 PM CARD DOFFER Gender Identity Female 08/24/2024 7:31 AM CDT Sexual Orientation Not on file Obstetrics History [...] 07/11/2024 8:07 AM CDT Plan of Treatment Upcoming Encounters Date Type Department Care Team (Latest Contact Info) Description 09/14/2024 10:15 AM CDT Hospital Encounter [facility] Operating Room [address] [place] [phone] Martínez Guadalupe MD [address] [facility] [address] [place], [place] [id number] 09/14/2024 10:15 AM CDT - 09/14/2024 1:15 PM CDT Surgery [facility] Operating Room [address] [place] [phone] Martínez Guadalupe MD [address] [facility] [address] [place] [address] Robotic Assisted Right Total Knee Arthroplasty Scheduled Procedures Name Priority Associated Diagnoses Date/Ti me ARTHROPLASTY TOTAL KNEE - S&N CORI Primary osteoarthritis of right knee 09/14/2024 10:15 AM CDT Health Maintenance Due Date Last Done Comments Depression Screening 1945 Fall Risk Assessment 1945 Hepatitis C Screening 1945 Osteoporosis Screening-Bone Density Scan 1945 DTaP/Tdap/Td Vaccine (1 - Tdap) 1958 Hepatitis B Screening 1965 Zoster Vaccine (1 of 2) 1997 Well Visit 65+ 2012 Pneumococcal vaccine 65+ (2 of 2 - PCV) 10/26/2019 10/25/2018 Covid-19 Vaccine (2 - season) 2024 Influenza Vaccine (Season Ended) 2025 03/25/2021, 03/27/2020, 02/04/2017 Procedures Procedure Name Priority Date/Time Associated Diagnosis Comments XR KNEE RIGHT 4 OR MORE VIEWS Schedule Routine, Read Routine (OP Routine) 07/11/2024 8:19 AM CDT Right knee pain, unspecified chronicity [place] ARTHROCENTESIS ASPIR&/INJ MAJOR JT/BURSA W/O US Routine 06/02/2024 1:15 PM CARD DOFFER Primary osteoarthritis of right knee from Last 3 Months Results * XR [...] Pain COMPARISON: Radiograph 08/10/2023 Procedure Note Quinton Valear MD - 07/11/2024 EXAM: XR KNEE RIGHT [...] alignment. Electronically signed by: Quinton Valera M.D. us Martínez Guadalupe MD IMG XR PROCEDURES Final Resu lt * [place] ARTHROCENTESIS ASPIR&/INJ MAJOR JT/BURSA W/O US (06/02/2024 1:15 PM CARD DOFFER) Narrative Martínez Guadalupe MD - 06/02/2024 1:15 PM CARD DOFFER Martínez Guadlaupe MD 06/02/2024 1:18 PM Large Joint (Hip, [...] Guadalupe MD IN CLINIC/BEDSIDE ORDERABLES Final Result from Last 3 Months Insurance [facility] MEDICARE T MEDICARE AETNA MEDICARE Care Teams Radiation Control Technician Relationship Specialty Start Date End Date Divine Castillo MD [address] [facility] [address] [place] [address] PCP - General Family Practice 04/22/24
--- OUTSIDE RECORDS SUMMARY | 2024-08-29 14:02 | XMS_ITS | Clinical Summary ---
Author Organization [facility] Address [address] [place] [address] Care Team Providers Care Bellhop Name Role Phone Unavailable Primary Care Provider Unavailabl e Social History Tobacco Use Types Packs/Day Years Used Date Smoking Tobacco: Never Assessed Comments Unknown Sex and Gender Information Value Date Recorded Sex Assigned at Not on file Legal Sex Female 9:54 AM NUCLEAR SCIENTIST Gender Identity Not on file Sexual Orientation [...]
--- OUTSIDE RECORDS SUMMARY | 2024-08-29 14:02 | XMS_ITS | Referral Summary ---
Author Organization [facility] [address] [facility] Address [address] [place] [address] Care Team Providers Care Relaster Name Role Phone Divine Castillo MD Primary Care Provider Encounters Date Type Department Care Team Description 07/11/2024 8:15 AM CDT Ancillary Procedure [facility] [address] [phone] 07/11/2024 8:15 AM CDT Office Visit [address] [phone] Martínez Guadalupe MD Primary osteoarthritis of right knee (Primary Dx); Right knee pain, unspecified chronicity 06/02/2024 1:15 PM JIGMAN Clinical Support [facility] [phone] Martínez Guadalupe MD Primary osteoarthritis of right knee (Primary Dx) from Last 3 Months Allergies No known [...] on file Legal Sex Female 9:12 PM JIGMAN Gender Identity Female 08/24/2024 7:31 AM CDT Sexual Orientation Not on file Last Filed [...] 09/14/2024 10:15 AM CDT Hospital Encounter [facility] Operating Room [address] [place] [phone] Martínez Guadalupe MD [address] [place] [address] [address] [place] [address] 09/14/2024 10:15 AM CDT - 09/14/2024 1:15 PM CDT Surgery [facility] Operating Room [address] [place] [phone] Martínez Guadalupe MD [address] [facility] [address] [place] [address] Robotic Assisted Right Total Knee Arthroplasty Scheduled Procedures Name Priority Associated Diagnoses Date/Ti me ARTHROPLASTY TOTAL KNEE - S&N CORI Primary osteoarthritis of right knee 09/14/2024 10:15 AM CDT Procedures Procedure Name Priority Date/Time Associated Diagnosis Comments XR KNEE RIGHT 4 OR MORE VIEWS Schedule Routine, Read Routine (OP Routine) 07/11/2024 8:19 AM CDT Right knee pain, unspecified chronicity [place] ARTHROCENTESIS ASPIR&/INJ MAJOR JT/BURSA W/O US Routine 06/02/2024 1:15 PM JIGMAN Primary osteoarthritis of right knee from Last [...] IMG XR PROCEDURES Final Resu lt * [place] ARTHROCENTESIS ASPIR&/INJ MAJOR JT/BURSA W/O US (06/02/2024 1:15 PM JIGMAN) Narrative Martínez Guadalupe MD - 06/02/2024 1:15 PM JIGMAN Martínez Guadalupe MD 06/02/2024 1:18 PM Large [...] Final Result from Last 3 Months Insurance [employer] MEDICARE T MEDICARE T MEDICARE Care Teams Relaster Relationship Specialty Start Date End Date Divine Castillo MD [address] [place] [address] [address] [place] [address] PCP - General Family Practice 04/22/24
--- OUTSIDE RECORDS SUMMARY | 2024-08-29 14:02 | XMS_ITS | Clinical Summary ---
Author Organization [facility] Address [facility] [place] [address] Care Team Providers Care Corn Cooker Name Role Phone Pato Staples MD Primary Care Provider [phone] Allergies No known active allergies Medications levothyroxine [...] Td Vaccines ( 1 - Tdap) 1966 Pneumococcal Vaccine: 50+ Ye ars (1 of 1 - PCV) 1997 Zoster Vaccines (1 of 2) 1997 Annual Medicare Wellness Visit 2012 Dexa Scan (General) 2012 RSV Immunization or 60+ Years (1 - 1-dose 75+ series) 2022 COVID-19 Vaccine (2023-2 5 season) 2024 Meningococcal B Vaccine Aged Out No l onger eligible based on patient's age to complete this topic Meningococcal Vaccine Aged Out No calos rosetta eligible based on patient's age to complete this topic RSV Immunizations Under 20 Months Aged Out No longer eligible based on patient's age to complete this topic Insurance [facility] MEDICARE Advance Directives * Full Code (Latest Code Status on File) Date Activated Date Inactivated Comments 12/22/2019 2:59 PM 12/23/2019 3:03 PM Care Teams Corn Cooker Relationship Specialty Start Date End Date Pato Staples MD [address] [place] [address] PCP - General FAMILY PRACTICE 12/22/19
[2024-08-29 15:53] LABS: Free T4 Free Thyroxine Reflex 1.29 ng/dL (0.78-2.19)
[2024-08-29 16:44] LABS: Total Triiodothyronine (T3) 1.04 NG/ML (0.97-1.69)
== END 2024-08-29 12:24 | disposition home or self-care (01) ==
PROVIDERS: PCP Family Medicine; Visit Provider Family Medicine
DX: E78.5 Hyperlipidemia, unspecified (principal); R74.8 Abnormal levels of other serum enzymes; E03.9 Hypothyroidism, unspecified; I10 Essential (primary) hypertension; Z01.810 Encounter for preprocedural cardiovascular examination
CPT/HCPCS: 36415; 80053; 84439; 84443; 84480; 85025; 93005

== ENCOUNTER 2024-11-24 10:00 | Outpatient (RCR) | payer MEDICARE, SELFPAY ==
--- NOTE | 2024-09-28 14:06 | PTOPEVAL1 ---
Assessment and note entered by Lexa Henderson Evaluation Information Assessment Status Evaluation Diagnosis R TKA ICD-10 Condition Codes (PT) Pain in right knee M25.561,Abnormalities of gait and mobility R26.9 Onset 09/14/24 Subjective Information Pt. reports she underwent right TKA on 09/14/24. She reports she has been participating in HH therapy since surgery. She states that she is using a [employer] tech bike at home currently. She is exercising daily. She states that pain fluctuates with activity. She reports she has some difficulty sleeping due to right knee pain. She reports that her pain levels stay around 4-5/10. She will take pain medication 1x/day. She reports that she was independent with most IADL's prior to surgery. she is currently using a cane. She states that she lives alone and states that family checks on her often. Her goal for therapy is to return to walking normally and states that she was horse back riding prior to surgery and would like to return to riding. Reported Pain Level Pain Score 4: Self Report Assessment PT Clinical Summary Pt. is a 79 year old female who enters the clinic 2 weeks post right TKA. She presents with impaired gait, impaired right knee ROM, edema, impaired l.e. strength and functional decline. Continued skilled PT is indicated in order to address these areas to allow the pt. to achieve her goal of normal gait and improved ROM, as well as to return to horse back riding. Plan of Care Interventions Electrical Stimulation,Gait Training,Hot Pack/Cold Pack,Manual Therapy,Neuro Re-education,Patient/ Caregiver Education,Therapeutic Activities, Therapeutic Exercise PT Services Indicated Yes Treatment Frequency and 2x/week x 10 visits Duration These treatments will address the objective and functional deficits as defined above. The patient will be advanced safely and appropriately in order for the patient to progress towards his/her prior level of function. Additional exercises will be introduced and as well as a comprehensive home exercise program upon discharge, if needed, ?to ensure carryover of functional gains achieved in the clinic. This treatment plan has been reviewed and agreement upon by the patient.
--- NOTE | 2024-09-28 14:07 | OPREHPOC ---
Outpatient Therapy Plan of Care This is a Multidisciplinary Plan of Care that may contain components documented by all disciplines (PT, OT, and ST.) PT Problem 1 PT Problem #1 Knowledge Deficit PT Goal 1 Goal / Goal Update Pt. will be independent with a HEP focused on l.e. strength and mobility. Target Visit 2 PT Problem 2 PT Problem #2 Edema PT Goal 1 Goal / Goal Update Pt. will decrease knee joint line girth measurements on the right to less than 44cm. Target Visit 10 PT Problem 3 PT Problem #3 Impaired Range of Motion PT Goal 1 Goal / Goal Update Pt. will achieve 2-110 degrees of right knee joint AROM Target Visit 10 PT Problem 4 PT Problem #4 Impaired Functional Mobility PT Goal 1 Goal / Goal Update Pt. will complete the 6 minute walk test without an AD for distance of 1000' or more to return to normal community navigation Pt. will navigate 10 steps with a reciprocal pattern Pt. will present with less than 20% limitation on the LEFS Target Visit 10 PT Problem 5 PT Problem #5 Impaired Strength PT Goal 1 Goal / Goal Update Pt. will present with 5/5 gross l.e. strength. Target Visit 10
--- NOTE | 2024-10-27 11:27 | OPREHPOC ---
Outpatient Therapy Plan of Care This is a Multidisciplinary Plan of Care that may contain components documented by all disciplines (PT, OT, and ST.) PT Problem 1 PT Problem #1 Knowledge Deficit PT Goal 1 Goal / Goal Update Pt. will be independent with a HEP focused on l.e. strength and mobility. Target Visit 2 Progress Met PT Problem 2 PT Problem #2 Edema PT Goal 1 Goal / Goal Update Pt. will decrease knee joint line girth measurements on the right to less than 44cm. Target Visit 10 Progress Met PT Problem 3 PT Problem #3 Impaired Range of Motion PT Goal 1 Goal / Goal Update Pt. will achieve 2-110 degrees of right knee joint AROM (10/26/24 progressing R knee 2-108) Target Visit 10 Progress Partially Met PT Problem 4 PT Problem #4 Impaired Functional Mobility PT Goal 1 Goal / Goal Update Pt. will complete the 6 minute walk test without an AD for distance of 1000' or more to return to normal community navigation (10/27/24 MET) Pt. will navigate 10 steps with a reciprocal pattern (10/27/24 progressing but unstable eccentric) Pt. will present with less than 20% limitation on the LEFS (10/27/24 progressing 27.5%) Target Visit 10 Progress Partially Met PT Problem 5 PT Problem #5 Impaired Strength PT Goal 1 Goal / Goal Update Pt. will present with 5/5 gross l.e. strength. ( progressing, R hip flexion and abduction 4/5 , R knee flexion 4+/5, extension 4/5) Target Visit 10 Progress Partially Met
--- NOTE | 2024-10-27 11:27 | PTOPPROG ---
Assessment and note entered by Elizabeth Pearson, PT Evaluation Information Assessment Status Progress Diagnosis R TKA ICD-10 Condition Codes (PT) Pain in right knee M25.561,Abnormalities of gait and mobility R26.9 Onset 09/14/24 Subjective Information Overall the pt reports feeling good in her recovery. She reports feeling 90% improvement since starting therapy. She knows she needs to do strength training and work on the stairs. Assessment PT Clinical Summary Patient's condition has improved overall as evidenced by advancements in symptoms, mobility, strength, and overall functional use of the extremity. However, some limitations are still present such as end range knee mobility and eccentric quad strength. Patient would benefit from continued skilled PT services to address the above listed impairments and facilitate a return to their PLOF. Plan of Care Interventions Electrical Stimulation,Gait Training,Hot Pack/Cold Pack,Manual Therapy,Neuro Re-education,Patient/ Caregiver Education,Therapeutic Activities, Therapeutic Exercise PT Services Indicated Yes Treatment Frequency and 2x/week x 8 visits Duration These treatments will address the objective and functional deficits as defined above. The patient will be advanced safely and appropriately in order for the patient to progress towards his/her prior level of function. Additional exercises will be introduced and as well as a comprehensive home exercise program upon discharge, if needed, ?to ensure carryover of functional gains achieved in the clinic. This treatment plan has been reviewed and agreement upon by the patient.
--- NOTE | 2024-11-14 09:09 | PCPTNOTE ---
Patient called to cancel her appointment as she had forgotten that she was having work done at her house this AM
--- NOTE | 2024-11-24 10:38 | PTOPDC ---
Assessment and note entered by Elizabeth Pearson, PT Evaluation Information Assessment Status Discharge Diagnosis R TKA ICD-10 Condition Codes (PT) Pain in right knee M25.561,Abnormalities of gait and mobility R26.9 Onset 09/14/24 Subjective Information Overall the pt reports feeling good in her recovery since when she first walked into therapy. She reports feeling 100% improvement since starting PT. She knows she will need to continue working on her strength and mobility at home. She feels comfortable with her current HEP and wants to get back to riding horses. Reported Pain Level Pain Score 0: Self Report Pain Score 0: Self Report Assessment PT Clinical Summary Patient's condition has improved overall as evidenced by advancements in symptoms, mobility, strength, and overall functional use of the extremity. Pt has met all therapy goals except hitting a ceiling effect on the LEFS at 22% due to not returning to running or jumping. Patient to DC from PT this date and continue with updated HEP as instructed. Pt to contact PT or PCP if questions or concerns arise. Plan of Care PT Services Indicated Yes
== END 2024-11-24 15:44 | disposition home or self-care (01) ==
LOC: ANHGOSHPT 10:00
PROVIDERS: PCP Family Medicine
DX: M17.11 Unilateral primary osteoarthritis, right knee (principal); R26.9 Unspecified abnormalities of gait and mobility
CPT/HCPCS: 97014; 97110; 97112; 97140; 97161; 97530; G0283

== ENCOUNTER 2024-12-13 08:05 | Outpatient (CLI) | payer MEDICARE, SELFPAY ==
--- OUTSIDE RECORDS SUMMARY | 2024-12-13 08:11 | XMS_ITS ---
Author Name Auto Generated, Auto Generated Organization [facility] ices Address [address] [place] [address] Phone [phone] Care Team Providers Care Ship Erector Name Role Phone Martínez Guadalupe Unavailable Divine Castillo Unavailable [phone] Functional Status No Results Mental Status No Results Allergies and Intolerances Name Onset Date Reaction Severity No Known Allergies (Allergy) ThuSeptember 09 16:47:00 EDT 2024 Encounters Program Name Primary Diagnosis Admission Date/Time Dis charge Date/Time Home Care Guerda September 15 20:00 :00 EDT 2024September 27 19:59:59 EDT 2024 Medications Medication Directions Start Date End Date acetaminophen 500 mg capsule 1 CAPSULE Oral Every 6 Hours ThuSeptember 16 01:00:00 EDT 2024September 27 01:00:00 EDT 2024 ALPRAZolam 0.5 mg tablet 1 TABLET Oral P RN 1 Time Daily Indication: anxiety ThuSeptember 16 01:00:00 EDT 2024September 27 01:00:00 EDT 2024 aspirin 81 mg tablet,delayed release 1 TABLET, DELAYED RELEASE (ENTERIC COATED) Oral 2 Times Daily ThuSeptember 16 01:00:00 EDT 2024September 27 01:00:00 EDT 2024 cefuroxime axetiL 500 mg tablet 1 TABLET Oral 2 Times Daily for 7 Days ThuSeptember 16 01:00:00 EDT 2024September 23 00:59:00 EDT 2024 Vitamin D3 50 mcg (2,000 unit) tablet 1 TABLET Oral Every Evening ThuSeptember 16 01:00:00 EDT 2024September 27 01:00:00 EDT 2024 docusate sodium 100 mg capsule 1 CAPSULE Oral PRN 2 Times Daily Indication: constipation ThuSeptember 16 01:00:00 ED2024September 27 01:00:00 EDT 2024 famotidine 40 mg tablet 1 TABLET Oral Ev ngoc Morning ThuSeptember 16:00:00 EDT 2024September 27 01:00:00 EDT 2024 gabapentin 100 mg capsule 1 CAPSULE Oral Every Evening ThuSeptember 16 01:00:00 EDT 2024September 27 01:00:00 EDT 2024 levothyroxine 137 mcg tablet 1 TABLET 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 ThuSeptember 16:00:00 EDT 2024September 27 01:00:00 EDT 2024 losartan 100 mg tablet 1 TABLET Oral Riana ry Morning ThuSeptember 16:00:00 EDT 2024September 27 01:00:00 EDT 2024 metFORMIN 500 mg tablet 2 TABLET Oral 2 Times Daily per med bottle, how pt is taking ThuSeptember 16:00:00 EDT 2024September 27 01:00:00 EDT 2024 oxyCODONE 5 mg tablet 1 TABLET Oral PRN Every 4 Hours Indication: pain wean of narcotic by two weeks after surgery ThuSeptember 16 01:00:00 EDT 2024September 27 01:00:00 EDT 2024 Probiotic 10 billion cell capsule 1 CAPSULE Oral 1 Time Daily ThuSeptember 16:00:00 EDT 2024September 27 01:00:00 EDT 2024 traZODone 50 mg tablet 1 TABLET Oral Praveen r Of Sleep ThuSeptember 16 01:00:00 EDT 2024September 27 01:00:00 EDT 2024 Problems Active Concerns * Aftercare following joint replacement surgery* Code: * Start Date: ThuSeptember 15 00:00:00 EDT 2024 * End Date: * Text: * intermediate designer (current) use of opiate analgesic* Code: * Start Date: ThuSeptember 16 00:00:00 EDT 2024 * End Date: * Text: * Hormone replacement therapy* Code: * Start Date: ThuSeptember 16 00:00:00 EDT 2024 * End Date: * Text: * intermediate designer (current) use of aspirin* Code: * Start Date: ThuSeptember 16 00:00:00 EDT 2024 * End Date: * Text: * Other jail (current) drug therapy* Code: * Start Date: ThuSeptember 16 00:00:00 EDT 2024 * End Date: * Text: * Presence of left artificial knee joint* Code: * Start Date: ThuSeptember 16 00:00:00 EDT 2024 * End Date: * Text: * Unspecified urinary incontinence* Code: * Start Date: ThuSeptember 16 00:00:00 EDT 2024 * End Date: * Text: * Anxiety disorder, unspecified* Code: * Start Date: ThuSeptember 16 00:00:00 EDT 2024 * End Date: * Text: * Prediabetes* Code: * Start Date: ThuSeptember 16 00:00:00 EDT 2024 * End Date: * Text: * Gastro-esophageal reflux disease without esophagitis* Code: * Start Date: ThuSeptember 16 00:00:00 EDT 2024 * End Date: * Text: * Hyperlipidemia, unspecified* Code: * Start Date: ThuSeptember 16 00:00:00 EDT 2024 * End Date: * Text: * Hypothyroidism, unspecified* Code: * Start Date: ThuSeptember 16 00:00:00 EDT 2024 * End Date: * Text: * Essential (primary) hypertension* Code: * Start Date: ThuSeptember 16 00:00:00 EDT 2024 * End Date: * Text: * Presence of right artificial knee joint* Code: * Start Date: ThuSeptember 16 00:00:00 EDT 2024 * End Date: * Text: Reason for Referral
--- OUTSIDE RECORDS SUMMARY | 2024-12-13 08:11 | XMS_ITS | Clinical Summary ---
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 Gender Identity Not on file Sexual Orientation Not on file Plan of Treatment Health Maintenance Due Date Last Done Comments Hepatitis C Virus (HCV) Screening 1945 TdaP Immunization 1945 Zoster Immunization (1 of 2) 1997 Pneumococcal Immunization (5 0+ years) (2 of 2 - PCV) 10/26/2019 10/25/2018 Respiratory Syncytial Virus (RSV) Immunization (Adult) (1 - 1-dose 75+ series) 2022 SARS-COV-2 Immunization (1 - 2023- season) 2024 Influenza Immunization (#1) 2025 03/27/2020 Pneumococcal Immunization Combined Discontinued 2018 Hepatitis B Immunization Aged Out No longer eligible based on patient's age to complete this topic Human Papillomavirus (HPV) Immunization Aged Out No longer eligible b ased on patient's age to complete this topic Meningococcal Immunization (ACWY) Aged Out No longer eligible based on patient's age to complete this topic Rotavirus Immunization Aged Out No lo nger eligible based on patient's age to complete this topic
--- OUTSIDE RECORDS SUMMARY | 2024-12-13 08:11 | XMS_ITS | Encounter Summary ---
Author Organization [facility] Address [address] [place] [id number] Care Team Providers Care Education Trainer Name Role Phone Divine Castillo MD Primary Care Provider Reason for Visit * Reason Comments Post-op R TKA Encounter Details Date Type Department Care Team (Late st Contact Info) Description 12/12/2024 9:15 AM CDT Office Visit [facility] [address] [place] [address] Radha Cruz NP [address] [address] Status post total right knee replacement (Primary Dx); Orthopedic aftercare; Risk for falls; Altered gait Social History Tobacco Use Types Packs/Day Years Used Date Smoking Tobacco: Never Smokeless Tobacco: Never AUDIT-C Answer Date Recorded Q1: How often do you have a drink containing alc ohol? 2-3 times a week 08/31/2024 Q2: How many drinks containi ng alcohol do you have on a typical day when you are drinking? 1 or 2 08/31/2024 Q3: How often do you have si x or more drinks on one occasion? Never 08/31/2024 Personal Safety Answer Date Recorded Have you ever been in or are you currently in a harmful physical or emotional relationship or is someone making you feel afraid or unsafe? 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 [facility] [address] [place] [address], [address] [place], [place] [address] CHIEF COMPLAINT Follow up of right total knee replacement HISTORY OF PRESENT ILLNESS Aviva Hess returns today for the three month follow up of the right total knee replacement. She is making good progress. She has finished with physical therapy and is performing home exercise program independently. MEDICATIONS She has a current medication list which includes the following prescription(s): alprazolam, atorvastatin, cholecalciferol, diclofenac dr, famotidine, gabapentin, levothyroxine, losartan, metformin, and trazodone. ALLERGIES Patient has no known allergies. Objective PHYSICAL EXAM Ht 162.6 cm (5' 4) Wt 72.6 kg (160 lb) BMI 27.46 kg/m?? Right knee Inspection Erythema: absent Cellulitis: absent Swelling: mild and present Surgical scar/wound: present. The surgical scar/wound is healed, no evidence of infection and well approximated. There is no drainage present. Skin temperature: normal Alignment: neutral Gait: normal Palpation Tenderness: present. The tenderness is located in the iliotibial band and pes anserinus. Range of motion The patient has reduced range of motion of the right knee. Active extension: 0 Active flexion: 116-120 Flexion contracture: no. Extensor lag: no. Stability The patient has normal AP and ML stability of the right knee. Strength Th patient has 5/5 strength throughout with exceptions as noted below . Knee extension: 4/5 and 5/5 Knee flexion: 4/5 and 5/5 Neurovascular The patient has normal vascular on the right side of their body. The patient has normal sensation on the right side of their body. ASSESSMENT/PLAN Diagnoses and all orders for this visit: Status post total right knee replacement (Primary) Orthopedic aftercare Risk for falls Altered gait The patient will increase non-impact activities as tolerated. She was advised to continue to work on strengthening the knee 2-3 times per week. She verbalized understanding of this. I also recommended that she utilize ice over the knee when she works the leg hard. Medication reconciliation was performed with the patient today. Dental prophylaxis will be determined by appropriate use criteria. Routine follow up will be at 1 year postop or sooner if needed. She will reach out with questions or concerns as needed via her [employer] account. Cosigned by Martínez Guadalupe MD at 12/12/2024 4:17 PM CDT documented in this encounter Plan of Treatment Not on file documented as of this encounter Visit Diagnoses Diagnosis Status post total right knee replacement- Primary Orthopedic aftercare Unspecified orthopedic aftercare Risk for falls Altered gait Abnormality of gait documented in this encounter Discontinued Medications Medication Sig Discontinue Reason Start Date End Da te aspirin 81 mg enteric coated tabletIndications:Deep Vein Thrombosis Prevention,prevention of thrombosis Take 1 tablet (81 mg total) by mouth once for 1 dose Therapy completed 10/10/2024 12/12/2024 documented as of this encounter Care Teams Education Trainer Relationship Specialty Start Date End Date Divine Castillo MD [id number] [facility] [address] [place] [address] PCP - General Family Practice 04/22/24 documented as of this encounter
--- OUTSIDE RECORDS SUMMARY | 2024-12-13 08:12 | XMS_ITS | Clinical Summary ---
Author Organization [address] Address [address] [place] [address] Care Team Providers Care Educational Institution Curator Name Role Phone Divine Castillo MD Primary Care Provider Allergies No known active allergies Medications ALPRAZolam (XANAX) 0.5 mg tablet Take 1 tablet (0.5 mg total) by mouth daily as needed 0 Active atorvastatin (LIPITOR) 20 mg tablet Take 1 tablet (20 mg total) by mouth nightly 2 Active famotidine (PEPCID) 40 mg tablet Take 1 tablet (40 mg total) by mouth every morning 2 Active metFORMIN (GLUMETZA) 500 mg 24 hr tablet Take 1 tablet (500 mg total) by mouth 2 (two) times a day 0 Active losartan (COZAAR) 100 mg tablet Take 1 tablet (100 mg total) by mouth every morning 4 Active traZODone (DESYREL) 50 mg tablet Take 1 tablet (50 mg total) by mouth nightly at bedtime 5 Active levothyroxine (SYNTHROID) 137 mcg tablet Take 1 tablet (137 mcg total) by mouth project administrator before breakfast Active cholecalciferol (VITAMIN D-3) 2000 unit tablet Take by mouth every evening Active gabapentin (NEURONTIN) 100 mg capsule Take 1 capsule (100 mg total) by mouth nightly [address] (VOLTAREN) 75 mg EC tablet TAKE 1 TABLET(75 MG) BY MOUTH TWICE DAILY 60 tablet 5 Active aspirin 81 mg enteric coated tabletIndicatio ns:Deep Vein Thrombosis Prevention,prev ention of thrombosis Take 1 tablet (81 mg total) by mouth once for 1 dose 5 12/13/19 25 Discontinu ed(Therapy completed) Active Problems Problem Noted Date Diagnosed Date Status post total right knee replacement 025 Hypertension Hyperlipidemia Anxiety GERD (gastroesophageal reflux disease) Prediabetes Hypothyroid Anemia Resolved Problems Problem Noted Date Diagnosed Date Resolved Date Primary osteoarthritis of right knee 05/31/2024 10/10/2024 Primary osteoarthritis of right knee 10/10/2024 Encounters Date Type Department Care Team Description 12/12/2024 9:15 AM CDT Office Visit [facility] [address] [phone] Radha Cruz NP Status post total right knee replacement (Primary Dx); Orthopedic aftercare; Risk for falls; Altered gait 10/10/2024 2:15 PM CDT Office Visit [facility] [address] [phone] Martínez Guadalupe MD Status post total right knee replacement (Primary Dx) 09/27/2024 9:15 AM CDT Office Visit [facility] [address] [phone] Radha Cruz NP Orthopedic aftercare (Primary Dx); Risk for falls; Acute pain of right knee; Altered gait; Total knee replacement status, right 09/27/2024 8:55 AM CDT Ancillary Procedure [facility] [address] [phone] Acute pain of right knee 09/17/2024 Documentation [facility] [address] [phone] Andrei Suárez MD 09/17/2024 Orders Only [facility] [address] [place] [phone] Andrei Suárez MD Aftercare following right knee joint replacement surgery (Primary Dx) 09/14/2024 10:20 AM CDT Anesthesia Event [facility] Operating Room [address] [place] [phone] Huber Ladd MD Shulman, Ashley Marie, CRNA 09/14/2024 10:15 AM CDT - 09/14/2024 1:15 PM CDT Surgery [facility] Operating Room [address] [place] [phone] Martínez Guadalupe MD Robotic Assisted Right Total Knee Arthroplasty 09/14/2024 7:07 AM CDT - 09/15/2024 12:19 PM CDT Hospital Encounter [address] [phone] Martínez Guadalupe MD Primary osteoarthritis of right knee (Primary Dx) Discharge Disposition: Discharge to home, home health skilled care from Last 3 Months Immunizations Immunization Administration Dates Next Due Influenza, Trivalent, High D ose, Split, Preservative Free, Intramuscular 02/04/2017 Surgical History Surgery Date Site/Laterality Comments HIP ARTHROPLASTY 05/04/2014 - 05/03/2015 Right TOTAL KNEE ARTHROPLASTY 05/04/2016 - 05/03/2017 Left Medical History Medical History Date Comments Hypertension Hyperlipidemia Anxiety GERD (gastroesophageal reflux disease) Prediabetes Hypothyroid Anemia Primary osteoarthritis of right knee Family History Medical History Relation Name Comments Heart disease Father Breast cancer Mother Relation Name Status Comments Father Mother Social History Tobacco Use Types Packs/Day Years Used Date Smoking Tobacco: Never Smokeless Tobacco: Never Tobacco Cessation:Counseling Given: Not Answered AUDIT-C Answer Date Recorded Q1: How often [...] on file 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 Gender Identity Female 08/24/2024 7:31 AM CDT Sexual Orientation Not on file Obstetrics History Last Filed Vital Signs Vital Sign Reading Time Taken Comments Blood Pressure 117/65 09/15/2024 7:37 AM CDT Pulse 73 09/15/2024 7:37 AM CDT Temperature 37 C (98.6 F) 09/15/2024 7:37 AM CDT Respiratory Rate 15 09/15/2024 7:37 AM CDT Oxygen Saturation 98% 09/15/2024 7:37 AM CDT Inhaled Oxygen Concentration - - Weight 72.6 kg (160 lb) 12/12/2024 9:07 AM CDT Height 162.6 cm (5' 4) 12/12/2024 9:07 AM CDT Body Mass Index 27.46 12/12/2024 9:07 AM CDT Plan of Treatment Health Maintenance Due Date Last Done Comments Depression Screening 1945 Hepatitis C Screening 1945 Osteoporosis Screening-Bone Density Scan 1945 DTaP/Tdap/Td Vaccine (1 - Tdap) 1958 Hepatitis B Screening 1965 Zoster Vaccine (1 of 2) 1997 Well Visit 65+ 2012 Pneumococcal vaccine 65+ (2 of 2 - PCV) 10/26/2019 10/25/2018 Covid-19 Vaccine (2 - season) 2024 Influenza Vaccine (#1) 2025 , 03/27/2020, 02/04/2017 Fall Risk Assessment 09/15/2025 09/15/2024 Medical Devices Implanted Type Area Yarn Comber Device Identifier Shelf Expiration Date Model / Serial / Lot [employer] Simplex P Radiopaque Full Dose Cement Bone Sterile 6191-1-010 - [id number] Implanted:Qty: 2 on 09/14/2024 by Martínez Guadalupe MD at [facility] Right: Knee [employer] 06/23/2026 6191-1-001 / / [id number] [employer]Or tho Melodie Ii [id number] Knee Oval Component Patellar Uhmwpe [id number] - [id number] Implanted:Qty: 1 on 09/14/2024 by Martínez Guadalupe MD at [facility] Right: Knee [employer]O rtho [id number] 06/11/2034 [id number] / / [id number] [employer]/Or tho Journey Bicruciate Stabilize Knee Right 3 Baseplate Tibial [id number] - [id number] Implanted:Qty: 1 on 09/14/2024 by Martínez Guadalupe MD at [facility] Right: Knee [employer] rtho [id number] 06/11/2034 [id number] / / [id number] [employer]Or [employer] Journey Ii Cruciate Retain Knee Right 5 Component Femoral Oxinium [id number] - [id number] Implanted:Qty: 1 on 09/14/2024 by Martínez Guadalupe MD at [facility] Right: Knee [employer] r[employer]o [id number] 07/16/2034 [id number] / / [id number] [employer]/Or tho Insert Tibial Knee Fixed Rm Articular Journey Ii 12mm Size 3-4 Xlpe [id number] - [id number] Implanted:Qty: 1 on 09/14/2024 by Martínez Guadalupe MD at [facility] Right: Knee [employer]o [id number] 02/19/2034 [id number] / / [id number] Procedures Procedure Name Priority Date/Time Associated Diagnosis Comments XR KNEE RIGHT 3 VIEWS Schedule Routine, Read Routine (OP Routine) 09/27/2024 9:04 AM CDT Acute pain of right knee POCT GLUCOSE DEVICE Routine 09/15/2024 11:06 AM CDT POCT GLUCOSE DEVICE Routine 09/15/2024 6 :57 AM CDT POCT GLUCOSE DEVICE Routine 09/14/2024 10:07 PM CDT POCT GLUCOSE DEVICE Routine 09/14/2024 3 :44 PM CDT POCT GLUCOSE DEVICE Routine 09/14/2024 2 :26 PM CDT AL AN PROCEDURE PLACEHOLDER Routine 09/14/2024 10:44 AM CDT ARTHROPLASTY TOTAL KNEE - S&N CORI 09/14/2024 10:21 AM CDT Primary osteoarthritis of right knee AL AN PROCEDURE PLACEHOLDER Routine 09/14/2024 10:11 AM CDT from Last 3 Months Results * XR Knee Right 3 View (09/27/2024 9:04 AM CDT) Anatomical Region Laterality Modality Lower Extremities, Knee Right Computed Radiography 09/27/2024 9:55 AM CDT Impressions 09/27/2024 9:55 AM CDT Status post right knee arthroplasty. Hardware intact. No periprosthetic fracture or acute osseous abnormality. Subcutaneous edema and right knee joint effusion from recent surgery. Visualized left knee arthroplasty intact. Electronically signed by: Jack Thorne M.D. Narrative 09/27/2024 9:55 AM CDT XR KNEE RIGHT 3 VIEWS: 09/27/2024 8:55 AM CLINICAL INDICATION: Right knee pain. COMPARISON: Radiographs of the knees dated 07/11/2024. Procedure Note Jack Thorne MD - 09/27/2024 XR KNEE RIGHT 3 VIEWS: 09/27/2024 8:55 AM CLINICAL INDICATION: Right knee pain. COMPARISON: Radiographs of the knees dated 07/11/2024. IMPRESSION: Status post right knee arthroplasty. Hardware intact. No periprosthetic fracture or acute osseous abnormality. Subcutaneous edema and right knee joint effusion from recent surgery. Visualized left knee arthroplasty intact. Electronically signed by: Jack Thorne M.D. Radha Cruz NP IMG XR PROCEDURES Fin al Result * POCT glucose (09/15/2024 11:06 AM CDT) Glucose, POC 132 70 - 199 mg/dL Comment: For Glucose values <35 mg/dl when Hematocrit is >60 mg/dl,the test may not accurately detect significant hypoglycemia,and testing in the Laboratory should be considered if clinically indicated. POC Performer [id number] [facility] Blood 09/15/2024 11:0 6 AM CDT 09/15/2024 11:06 AM CDT Martínez Guadalupe MD LAB POCT ORDERABLES - DEVICE Final Result Performing Organization Address [facility] Co de Phone Number [facility] [address] [place] [address] * POCT glucose (09/15/2024 6:57 AM CDT) Glucose, POC 151 70 - 199 mg/dL Comment: For Glucose values <35 mg/dl when Hematocrit is >60 mg/dl,the test may not accurately detect significant hypoglycemia,and testing in the Laboratory should be considered if clinically indicated. POC Performer [id number] [facility] Blood 09/15/2024 6:57 AM CDT 09/15/2024 6:57 AM CDT Martínez Guadalupe MD LAB POCT ORDERABLES - DEVICE Final Result Performing Organization Address City/[facility]/ZIP Co de Phone Number [facility] [address] [facility] [place] [address] * (ABNORMAL) POCT glucose (09/14/2024 10:07 PM CDT) Glucose, POC 210(H) 70 - 199 mg/dL Comment: For Glucose values <35 mg/dl when Hematocrit is >60 mg/dl,the test may not accurately detect significant hypoglycemia,and testing in the Laboratory should be considered if clinically indicated. POC Performer [id number] [facility] Blood 09/14/2024 10:0 7 PM CDT 09/14/2024 10:07 PM CDT Result [facility] Martínez Guadalupe MD LAB POCT ORDERABLES - DEVICE Final Result Performing Organization Address [facility] de Phone Number [facility] [address] [facility] [place] [address] * POCT glucose (09/14/2024 3:44 PM CDT) Glucose, POC 143 70 - 199 mg/dL Comment: For Glucose values <35 mg/dl when Hematocrit is >60 mg/dl,the test may not accurately detect significant hypoglycemia,and testing in the Laboratory should be considered if clinically indicated. POC Performer [id number] [facility] Blood 09/14/2024 3:44 PM CDT 09/14/2024 3:44 PM CDT Result [facility] Martínez Guadalupe MD LAB POCT ORDERABLES - DEVICE Final Result Performing Organization Address [facility] de Phone Number [facility] [address] [facility] [place] [address] * POCT glucose (09/14/2024 2:26 PM CDT) Glucose, POC 129 70 - 199 mg/dL Comment: For Glucose values <35 mg/dl when Hematocrit is >60 mg/dl,the test may not accurately detect significant hypoglycemia,and testing in the Laboratory should be considered if clinically indicated. POC Performer [id number] [facility] Blood 09/14/2024 2:26 PM CDT 09/14/2024 2:26 PM CDT Martínez Guadalupe MD LAB POCT ORDERABLES - DEVICE Final Result Performing Organization Address [facility] de Phone Number [facility] [address] [place] [address] * AL AN PROCEDURE PLACEHOLDER (09/14/2024 10:44 AM CDT) Martha Gomez CRNA - 09/14/2024 10:44 AM CDT Martha Barajas CRNA 09/14/2024 10:44 AM Spinal Block Patient location: OR End time: 09/14/2024 10:32 AM Reason for block: primary anesthetic Staff: Placed by: PHOTO TECHNOLOGIST:Martha Barajas CRNA Procedure prep: Preprocedure checklist: patient identified, procedure contraindications assessed, procedure consent, IV checked, risks, benefits and alternatives discussed, monitors and equipment checked and timeout performed Patient position: sitting Procedure performed while patient: sedate with meaningful contact Monitoring: oximetry and blood pressure Supplemental O2: nasal cannula Prep solution: iodine povacrylex PPE: provider hat/mask, sterile gloves and sterile drape Skin infiltrated with lidocaine 1%: yes Spinal: Approach: midline Introducer used: yes Location: L3-4 Spinal injection: CSF demonstrated, no aspiration of heme and no paresthesias noted Number of attempts: 2 Other sites attempted: L4-5 Spinal Needle: Needle type: Mando Needle gauge: 22 G Needle length: 5 cm Assessment: Sensory deficit - left: T10 Sensory deficit - right: T10 Events: patient tolerated procedure well with no complications Huber Ladd MD ANESTHESIA ORDERABLES Final Result * AL AN PROCEDURE PLACEHOLDER (09/14/2024 10:11 AM CDT) Huber Corley MD - 09/14/2024 10:11 AM CDT Huber Ladd MD 09/14/2024 10:11 AM Peripheral Block Patient location during procedure: pre-op holding Start time: 09/14/2024 10:00 AM End time: 09/14/2024 10:05 AM Reason for block: post-op pain management per surgeon request Ultrasound image in chart or stored: yes Block type: single shot Laterality: right Block type: saphenous nerve block - subsartorial approach Staff: Placed by: Anesthesiologist: Huber Ladd MD Procedure prep: Preprocedure checklist: patient identified, procedure contraindications assessed, site marked, procedure consent, surgical consent, IV checked, risks, benefits and alternatives discussed, monitors and equipment checked and timeout performed Patient position: supine Procedure performed while patient: sedate with meaningful contact Monitoring: ECG, oximetry and blood pressure Supplemental O2: nasal cannula Prep solution: chlorhexidine/alcohol PPE: provider hat/mask and sterile gloves Peripheral nerve block: Technique: ultrasound guided (ultrasound used for needle guidance and for active visualization of local anesthetic placement) Needle type: echogenic Needle gauge: 21 G Needle length: 100 mm Injection assessment: injection made incrementally with constant monitoring, local visualized surrounding nerve on ultrasound, negative aspiration for heme, no paresthesias noted, normal resistance to injection and see flowsheet for medication details (sedation meds documented in anesthetic record) Assessment: Block success: full evaluation pending Events: patient tolerated procedure well with no complications Huber Ladd MD ANESTHESIA ORDERABLES Final Result from Last 3 Months Insurance [facility] MEDICARE [facility] MEDIC[facility] MEDIC[facility] Advance Directives For more information, please contact: [phone] * Full Code (Latest Code Status on File) Date Activated Date Inactivated Comments 09/14/2024 3:16 PM 09/15/2024 4:25 PM Care Teams Educational Institution Curator Relationship Specialty Start Date End Date Divine Castillo MD [address] [place] [address] PCP - General Family Practice 04/22/24
--- OUTSIDE RECORDS SUMMARY | 2024-12-13 08:12 | XMS_ITS | Clinical Summary ---
Author Organization [facility] Address [address] [place] [address] Phone Care Team Providers Care Mysql Developer Name Role Phone Pato Staples MD Primary Care Provider [phone] Allergies No known active allergies Medications aspirin [...] Date Resolved Date Obesity (BMI 30.0-34.9) 12/23/201610/03 Immunizations Immunization Administration Dates Next Due Influenza [...] 12:20 PM CDT Height 165.1 cm (5' 5) 02/13/2023 12:20 PM CDT Body Mass Index 28.96 02/13/2023 12:20 PM CDT Plan of Treatment Health Maintenance Due Date Last Done Comments DTAP/TDAP/TD VACCINES (1 - Tdap) 1966 PNEUMOCOCCAL VACCINE 50+ YEA RS (1 of 1 - PCV) 1997 ZOSTER VACCINE (1 of 2) 1997 OSTEOPOROSIS SCREENING 2012 RSV VACCINE (60+ or ) (1 - 1-dose 75+ series) 2022 INFLUENZA VACCINE (#1) 2024 06/18/2021, 2016 Insurance [employer] PPO MCR Care Teams Mysql Developer Relationship Specialty Start Date End Date Pato Staples MD [address] [place] [phone] PCP - General Family Practice 10/23/17
--- OUTSIDE RECORDS SUMMARY | 2024-12-13 08:12 | XMS_ITS | Clinical Summary ---
Author Organization [facility] Address [facility] [place] [address] Care Team Providers Care Reproduction Production Manager Name Role Phone Pato Staples MD Primary Care Provider Allergies No known active allergies Medications levothyroxine [...] 4:51 AM CDT Height 165.1 cm (5' 5) 12/22/2019 3:00 PM CDT Body Mass Index [...] age to complete this topic Insurance MED MERGED WITH [facility] MEDICARE Advance Directives * Full Code (Latest Code Status on File) Date Activated Date Inactivated Comments 12/22/2019 2:59 PM 12/23/2019 3:03 PM Care Teams Reproduction Production Manager Relationship Specialty Start Date End Date Pato Staples MD [address] [place] [place] [address] PCP - General FAMILY PRACTICE 12/22/19
[2024-12-13 13:28] LABS: Hematocrit 37.6 % (37.0-47.0); Hemoglobin 11.9 g/dL (12.0-15.0); Immature Granulocyte Percent A 0.2 % (0-0.5); Lymphocytes Absolute Auto 2.29 K/mm3 (0.9-3.2); Mean Corpuscular HGB Conc 31.6 g/dl (32-36); Mean Corpuscular Hemoglobin 31.5 pg (26-34); Mean Corpuscular Volume 99.5 fl (80-100); Nucleated Red Blood Cells Absolute Auto 0.000 K/mm3 (0.0-0.012); Nucleated Red Blood Cells Perc 0.0 % (0.0-0.2); Platelet Count Result 221 k/mm3 (150-375); Red Blood Count 3.78 M/mm3 (4.2-5.4); White Blood Count 5.6 K/mm3 (4.5-10.0)
[2024-12-13 13:36] LABS: Alanine Aminotransferase 24 U/L (6-35); Albumin Level 4.3 g/dL (3.5-5.1); Alkaline Phosphatase 90 U/L (38-126); Anion Gap 7 mmol/L (4-12); Aspartate Amino Transferase 36 U/L (14-36); Bilirubin,Total 0.4 mg/dL (0.2-1.3); Blood Urea Nitrogen 39 mg/dL (7-17); Calcium 9.4 mg/dL (8.4-10.2); Carbon Dioxide 26 mmol/L (22-30); Chloride 103 mmol/L (98-107); Cholesterol 263 mg/dL (0-200); Glucose 72 mg/dL (65-110); HDL Direct 64 mg/dL; Potassium 4.5 mmol/L (3.4-5.0); Sodium 136 mmol/L (137-145); Total Protein 7.3 g/dL (6.3-8.2); Triglycerides 104 mg/dL (<150)
[2024-12-13 13:53] LABS: MALB Creatinine Ratio 26.4 mg/g (0-30)
[2024-12-13 13:53] LABS: Estimated Glomerular Filt Rate 28
[2024-12-13 14:08] LABS: Thyroid Stimulating Hormone Reflex 1.210 uIU/mL (0.465-4.68)
[2024-12-13 14:32] LABS: Hemoglobin A1C 5.6 % (<5.7)
[2024-12-13 14:33] LABS: Vitamin B12 652.0 pg/mL (239-931)
== END 2024-12-13 08:06 | disposition home or self-care (01) ==
LOC: ANHGOSHLAB 08:06
PROVIDERS: PCP Family Medicine; Visit Provider Family Medicine
DX: E03.9 Hypothyroidism, unspecified (principal); E11.9 Type 2 diabetes mellitus without complications; E53.8 Deficiency of other specified B group vitamins; E55.9 Vitamin D deficiency, unspecified; E78.5 Hyperlipidemia, unspecified; I10 Essential (primary) hypertension
CPT/HCPCS: 36415; 80053; 80061; 82043; 82306; 82607; 83036; 84443; 85025

== ENCOUNTER 2024-12-23 08:16 | Outpatient (CLI) | payer MEDICARE, SELFPAY ==
--- OUTSIDE RECORDS SUMMARY | 2024-12-23 08:19 | XMS_ITS ---
Author Name Auto Generated, Auto Generated Organization [facility] Address [address] [place] [address] Phone [phone] Care Team Providers Care Service And Repair Supervisor Name Role Phone Martínez Guadalupe Unavailable Divine Castillo Unavailable Functional Status No Results Mental Status No [...] mcg tablet 1 TABLET Oral Every Morning pianos and organs salesperson before breakfast ThuSeptember 16:00:00 EDT 2024September 27 [...] 2024 * End Date: * Text: * campus recruiting intern (current) use of opiate analgesic* Code: * Start Date: ThuSeptember 16 00:00:00 EDT 2024 * End Date: * Text: * Hormone replacement therapy* Code: * Start Date: ThuSeptember 16 00:00:00 EDT 2024 * End Date: * Text: * campus recruiting intern (current) use of aspirin* Code: * Start Date: ThuSeptember 16 00:00:00 EDT 2024 * End Date: * Text: * Other [facility] (current) drug therapy* Code: * Start Date: [...]
--- OUTSIDE RECORDS SUMMARY | 2024-12-23 08:19 | XMS_ITS ---
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
--- OUTSIDE RECORDS SUMMARY | 2024-12-23 08:20 | XMS_ITS | Clinical Summary ---
Author Organization [facility] Address [facility] [place] [address] Care Team Providers Care Varnish Finisher Name Role Phone Pato Staples MD Primary Care Provider [phone] Allergies No known active allergies Medications levothyroxine [...] age to complete this topic Insurance [facility] MEDICARE Advance Directives * Full Code (Latest Code Status on File) Date Activated Date Inactivated Comments 12/22/2019 2:59 PM 12/23/2019 3:03 PM Care Teams Varnish Finisher Relationship Specialty Start Date End Date Pato Staples MD [address] [place] [place] [address] PCP - General FAMILY PRACTICE 12/22/19
--- OUTSIDE RECORDS SUMMARY | 2024-12-23 08:20 | XMS_ITS | Clinical Summary ---
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
--- OUTSIDE RECORDS SUMMARY | 2024-12-23 08:20 | XMS_ITS | Clinical Summary ---
Author Organization [facility] Address [address] [place] [address] Phone Care Team Providers Care High Risk Case Manager Name Role Phone Pato Staples MD Primary Care Provider [phone] Allergies No known active allergies Medications aspirin [...] 2016 Insurance [employer] PPO MCR Care Teams High Risk Case Manager Relationship Specialty Start Date End Date Pato Staples MD [address] [place] [phone] PCP - General Family Practice 10/23/17
--- OUTSIDE RECORDS SUMMARY | 2024-12-23 08:21 | XMS_ITS | Clinical Summary ---
Author Organization [address] Address [address] [place] [address] Care Team Providers Care Director Of Consumer Affairs Name Role Phone Divine Castillo MD Primary [...] 1 tablet (137 mcg total) by mouth buffer automatic before breakfast Active cholecalciferol (VITAMIN D-3) 2000 [...] Description 12/12/2024 9:15 AM CDT Office Visit [facility] [address] [phone] Radha Cruz NP Status post total right knee replacement (Primary Dx); Orthopedic aftercare; Risk for falls; Altered gait 10/10/2024 2:15 PM CDT Office Visit [facility] [address] [phone] Martínez Guadalupe MD Status post total right knee replacement (Primary Dx) 09/27/2024 9:15 AM CDT Office Visit [address] [phone] Radha Cruz NP Orthopedic aftercare (Primary Dx); Risk for falls; Acute pain of right knee; Altered gait; Total knee replacement status, right 09/27/2024 8:55 AM CDT Ancillary Procedure [address] [phone] Acute pain of right knee from Last 3 Months Immunizations Immunization Administration [...] on file 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 Gender Identity Female 08/24/2024 7:31 AM CDT [...] PCV) 10/26/2019 10/25/2018 Covid-19 Vaccine (2 - 2023- season) 2024 Influenza Vaccine (#1) 2025 , 03/27/2020, 02/04/2017 Fall Risk Assessment 09/15/2025 09/15/2024 Medical Devices Implanted Type Area [employer] Device Identifier Shelf Expiration Date Model / Serial / Lot [employer] Simplex P Radiopaque Full Dose Cement Bone Sterile 6191-1-010 - [id number] Implanted:Qty: 2 on 09/14/2024 by Martínez Guadalupe MD at [facility] Right: Knee [employer] 06/23/2026 6191-1-001 / / [id number] [employer] Melodie Ii [id number] Knee Oval Component Patellar Uhmwpe [id number] - [id number] Implanted:Qty: 1 on 09/14/2024 by Martínez Guadalupe MD at [facility] Right: Knee [employer] [id number] 06/11/2034 [id number] / / [id number] [employer]Or tho Journey Bicruciate Stabilize Knee Right 3 Baseplate Tibial [id number] - [id number] Implanted:Qty: 1 on 09/14/2024 by Martínez Guadalupe MD at [facility] Right: Knee [employer] [id number] 06/11/2034 [id number] / / [id number] [employer] Journey Ii Cruciate Retain Knee Right 5 Component Femoral Oxinium [id number] - [id number] Implanted:Qty: 1 on 09/14/2024 by Martínez Guadalupe MD at [facility] Right: Knee [employer] [id number] 07/16/2034 [id number] / / [id number] [employer] Insert Tibial Knee Fixed Rm Articular Journey Ii 12mm Size 3-4 Xlpe [id number] - [id number] Implanted:Qty: 1 on 09/14/2024 by Martínez Guadalupe MD at [facility] Right: Knee [employer] [id number] 02/19/2034 [id number] / / [id number] Procedures Procedure Name Priority Date/Time Associated Diagnosis Comments XR KNEE RIGHT 3 VIEWS Schedule Routine, Read Routine (OP Routine) 09/27/2024 9:04 AM CDT Acute pain of right knee from Last 3 Months [...] NP IMG XR PROCEDURES Fin al Result from Last 3 Months Insurance [facility] [employer] [facility] Advance Directives For more information, please contact: [phone] * Full Code (Latest Code Status on File) Date Activated Date Inactivated Comments 09/14/2024 3:16 PM 09/15/2024 4:25 PM Care Teams Director Of Consumer Affairs Relationship Specialty Start Date End Date Divine Castillo MD [id number] [place] [address] [place] [address] PCP - General Family Practice 04/22/24
[2024-12-23 13:38] LABS: Anion Gap 7 mmol/L (4-12); Blood Urea Nitrogen 17 mg/dL (7-17); Calcium 9.6 mg/dL (8.4-10.2); Carbon Dioxide 28 mmol/L (22-30); Chloride 99 mmol/L (98-107); Estimated Glomerular Filt Rate 60; Glucose 90 mg/dL (65-110); Potassium 4.5 mmol/L (3.4-5.0); Sodium 134 mmol/L (137-145)
== END 2024-12-23 08:17 | disposition home or self-care (01) ==
PROVIDERS: PCP Family Medicine; Visit Provider Family Medicine
DX: N28.9 Disorder of kidney and ureter, unspecified (principal)
CPT/HCPCS: 36415; 80048